=== PATIENT | male | born 1955 | race Caucasian/White ===

== ENCOUNTER 2020-01-21 13:03 | Outpatient (CLI) | payer BC, SELFPAY ==
[2020-01-22 12:25] LABS: SARS-CoV-2 RNA PCR Positive
== END 2020-01-21 13:04 | disposition home or self-care (01) ==
LOC: CHSLAB 13:07
PROVIDERS: PCP Internal Medicine; Visit Provider Internal Medicine
DX: U07.1 COVID-19 (principal)
CPT/HCPCS: 87635; C9803; U0003

== ENCOUNTER 2020-03-05 08:50 | Outpatient (CLI) | payer BC, SELFPAY ==
--- NOTE | ~2020-03-05 | US_ITS ---
EXAMINATION: US retroperitoneal comp DATE: 03/05/2020 09:18 INDICATION: Chronic kidney disease. TECHNIQUE: Multiple ultrasound grayscale images of the kidneys were obtained. COMPARISON: Lumbar spine MRI 06/15/2018 FINDINGS: The right kidney measures 10.9 x 4.8 x 5.3 cm. The left kidney measures 9.4 x 5.4 x 4.6 cm. The kidne ys demonstrate normal parenchymal echogenicity. There is a 5 mm cyst in right kidney. There is no hyd ronephrosis. The bladder is distended. The prostate is mildly enlarged. IMPRESSION: 1. Normal kidney sizes. No hydronephrosis. 2. Mildly enlarged prostate. Reviewed, dictated and finalized at location A.
== END 2020-03-05 08:51 | disposition home or self-care (01) ==
LOC: CHSIMG 08:52
PROVIDERS: PCP Internal Medicine; Visit Provider Internal Medicine
DX: R97.20 Elevated prostate specific antigen [PSA] (principal); N18.2 Chronic kidney disease, stage 2 (mild)
CPT/HCPCS: 76770

== ENCOUNTER 2021-07-15 01:40 | Day surgery (SDC) | payer BC, SELFPAY ==
[2021-07-11 15:17] VITALS: BMI 27.3
[2021-07-15 11:19] VITALS: BP 121/90; PULSE 74; RESP 18; TEMP 36.3; O2SAT 98; BMI 27.1
[2021-07-15] MEDS: LACTATED RINGERS 1,000 ML 150 ML IV CONT (11:25)
--- NOTE | 2021-07-15 11:35 | PM.HPGS ---
History of Present Illness History of Present Illness Consent: Risks, benefits, and alternatives have been discussed and questions answered. Patient agrees to proceed with procedure. Chief complaint: neoplasm screening Narrative: Velasquez Murphy is a 66 year old male here for screening colonoscopy, last one 10 years ago. Review of Systems Constitutional: Constitutional: Denies headache(s) and Denies weakness Eyes: Eyes: Denies blurry vision ENT: Reports Normal hearing present, Denies headache(s) and Denies neck pain Cardiovascular: Cardiovascular: Denies chest pain and Denies dyspnea Respiratory: Respiratory: Denies dyspnea Gastrointestinal: Gastrointestinal: Reports no additional gastrointestinal complaints Genitourinary: Genitourinary: Denies dysuria Musculoskeletal: Musculoskeletal: Denies neck pain Integumentary/Breasts: Skin/Breast: Denies dry skin Neurologic: Reports Normal hearing present, Denies headache(s) and Denies weakness Psychiatric: Psychiatric: Denies anxiety Endocrine: Endocrine: Denies change in body appearance Hematologic/Lymphatic: Hematologic/Lymphatic: Denies easy bleeding Allergic/Immunologic: Allergic/Immunologic: Denies urticaria PMFSH Past Medical History Medical History (Updated 07/15/21 @ 11:35 by Ahsan Karimi MD) Colon cancer screening Family History Family History (Updated 01/01/14 @ 07:13 by DOCTOR UNKNOWN) Sibling Family history of thyroid disease Family history of arthritis Father Hypertension Cerebrovascular accident Mother Family history of arthritis Acute myocardial infarction Social History Social History Smoking status: Never smoker Alcohol intake: current Drinks per week: 2 Substance use type: does not use Living arrangements: alone Spiritual care concerns: No Meds Home Medications and Allergies Home Medications Medication Instructions Recorded Confirmed Type lovastatin 20 mg PO DAILY 07/11/21 07/11/21 History meloxicam 15 mg PO DAILY 07/11/21 07/11/21 History multivit with min-folic acid 1 tablet PO DAILY 07/11/21 07/11/21 History [Adult One Daily Multivitamin] tamsulosin 0.4 mg PO DAILY 07/11/21 07/11/21 History Allergies Allergy/AdvReac Type Severity Reaction Status Date / Time walnut Allergy Unknown Verified 07/15/21 11:17 Vital Signs Vital Signs - 24 hr 07/15/21 11:19 Temperature 97.3 F L Pulse Rate 74 Respiratory Rate 18 Blood Pressure 121/90 Pulse Oximetry 98 Exam Const: General: comfortable and no acute distress HENMT: General nose exam: Normal nares present Eyes: General: appearance normal, both eyes and all related structures Neck: Neck: no JVD Resp: Auscultation: clear to auscultation bilaterally Cardio: Rate: regular rate Rhythm: regular rhythm GI: Inspection: non-distended GI Palp: Yes Soft to palpation Skin: General skin exam: normal color Neuro: General: gait normal Speech: normal speech Extrem: General: normal to inspection Psych: Mental Status: mental status grossly normal Assessment and Plan Assessment and plan (1) Colon cancer screening: Code(s): Z12.11 - Encounter for screening for malignant neoplasm of colon Status: Acute Assessment and Plan: colonoscopy
--- NOTE | 2021-07-15 12:26 | WPDANESEPPF ---
Anes - Initial Pre Proc Eval Procedure: Operation Date: 07/15/21 12:30 Proposed Procedures p Screening Colonoscopy - Ahsan Karimi MD Date/Time: 07/15/21 12:26 Surgeon: Ahsan Karimi MD Pre Op Diagnosis: neoplasm screening Patient Data Age: 66 Gender: M Height: 1.75 m Weight: 83.4 kg Last Vital Signs Temp 97.3 F L 07/15/21 11:19 Pulse 74 07/15/21 11:19 Resp 18 07/15/21 11:19 BP 121/90 07/15/21 11:19 Pulse Ox 98 07/15/21 11:19 Allergies Allergy/AdvReac Type Severity Reaction Status Date / Time walnut Allergy Unknown Verified 07/15/21 11:17 Home Medications Medication Instructions Recorded Confirmed Type lovastatin 20 mg PO DAILY 07/11/21 07/11/21 History meloxicam 15 mg PO DAILY 07/11/21 07/11/21 History multivit with min-folic acid 1 tablet PO DAILY 07/11/21 07/11/21 History [Adult One Daily Multivitamin] tamsulosin 0.4 mg PO DAILY 07/11/21 07/11/21 History Patient hx anesthesia problems: none Family hx anesthesia problems: none Results Review: All pre-operative results and documents have been reviewed as part of the pre-operative evaluation. [facility] Past Medical History Medical History (Updated 07/15/21 @ 11:35 by Ahsan Karimi MD) Colon cancer screening Family History Family History (Updated 01/01/14 @ 07:13 by DOCTOR UNKNOWN) Sibling Family history of thyroid disease Family history of arthritis Father Hypertension Cerebrovascular accident Mother Family history of arthritis Acute myocardial infarction Social History Social History Smoking status: Never smoker Alcohol intake: current Drinks per week: 2 Substance use type: does not use Living arrangements: alone Spiritual care concerns: No Anes - Eval Final PreProcedure Day of Procedure 07/15/21 12:26 Patient weight: normal Heart: regular rate and rhythm Lungs: clear to auscultation Airway: Mallampati scale class II Neurological: alert and oriented Last oral intake: >/= 8 hours ASA classification: II Emergent: no Anesthetic plan: proceed Anesthesia type and monitoring: general GIVS and standard monitoring Results Review: All pre-operative results and documents have been reviewed as part of the pre-operative evaluation. Informed Consent: The patient's anesthetic plan and its attendant risks and benefits were discussed with the patient/family/POA. Questions were solicited and answers provided to the satisfaction of the patient/family/POA.
[2021-07-15 12:37] VITALS: BP 89/58; PULSE 66; RESP 19; O2SAT 93
[2021-07-15 12:47] VITALS: BP 92/58; PULSE 63; RESP 17; O2SAT 94
[2021-07-15 12:57] VITALS: BP 91/57; PULSE 65; RESP 20; O2SAT 95
[2021-07-15 13:07] VITALS: BP 140/92; PULSE 58; RESP 23; O2SAT 100
== END 2021-07-15 13:33 | disposition home or self-care (01) ==
PROVIDERS: PCP Internal Medicine; Visit Provider Internal Medicine Gastroenterology
PROC: 0DJD8ZZ Inspection of Lower Intestinal Tract, Via Natural or Artificial Opening Endoscopic (ICD-10-PCS; CPT 45378; principal; 2021-07-15 12:30)
DX: Z12.11 Encounter for screening for malignant neoplasm of colon (principal); K64.8 Other hemorrhoids
CPT/HCPCS: 45378; J2704; J7120

== ENCOUNTER 2021-08-01 16:36 | Outpatient (CLI) | payer BC, SELFPAY ==
--- NOTE | ~2021-08-01 | XR_ITS ---
XR chest 2V DATE: 08/01/2021 17:05 INDICATION: Worsening cough for 3 days. Chest tightness. TECHNIQUE: PA and lateral views COMPARISON: 07/20/2011 two-view chest FINDINGS: Normal heart size. No hilar or mediastinal enlargement. No pulmonary infiltrate or consolid ation, pleural effusion or pulmonary vascular congestion or pneumothorax. IMPRESSION: No active cardiopulmonary disease Reviewed, dictated and finalized at location A.
== END 2021-08-01 16:37 | disposition home or self-care (01) ==
LOC: CHSIMG 16:40
PROVIDERS: PCP Internal Medicine; Visit Provider Nurse Practitioner Family
DX: R05.3 Chronic cough (principal)
CPT/HCPCS: 71046

== ENCOUNTER 2023-06-15 14:56 | Outpatient (CLI) | payer MEDICARE, SELFPAY ==
--- NOTE | ~2023-06-15 | XR_ITS ---
EXAMINATION: XR knee LT 3V DATE: 06/15/2023 15:42 INDICATION: Left knee injury and pain. TECHNIQUE: 4 views of left knee including weightbearing views were obtained. COMPARISON: None. FINDINGS: Bone alignment is normal. No fracture. There is mild tricompartmental osteoarthritis. There is a small knee joint effusion. IMPRESSION: 1. Mild left knee osteoarthritis. 2. Small left knee joint effusion. Reviewed, dictated and finalized at location E. 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
[2023-06-15 15:26] LABS: Basophils Absolute Auto 0.04 K/mm3 (0.00-0.10); Basophils Percent Auto 0.7 % (0.0-1.0); Eosinophils Absolute Auto 0.23 K/mm3 (0.02-0.50); Eosinophils Percent Auto 3.9 % (1.0-6.0); Hematocrit 42.7 % (37.0-46.0); Hemoglobin 14.5 g/dL (12.4-15.3); Immature Granulocyte Absolute 0.01 K/mm3 (0.00-0.00); Immature Granulocyte Percent A 0.2 % (0.0-0.0); Lymphocytes Absolute Auto 1.88 K/mm3 (1.10-4.50); Lymphocytes Percent Auto 32.2 % (18.0-42.0); Mean Corpuscular Hemoglobin 31.8 pg (27.0-31.0); Mean Corpuscular Volume 93.6 fL (78.0-102.0); Mean Platelet Volume 9.5 fl (8.7-11.0); Monocytes Absolute Auto 0.65 K/mm3 (0.10-0.90); Monocytes Percent Auto 11.1 % (2.0-11.0); Neutrophils Percent Auto 51.9 % (50.0-70.0); Platelet Count Result 206 K/mm3 (150-420); Red Blood Count 4.56 M/mm3 (4.70-6.10); Red Cell Distribution Width 13.2 % (11.6-14.4); White Blood Count 5.8 K/mm3 (4.8-10.8)
[2023-06-15 16:08] LABS: Alanine Aminotransferase 38 U/L (16-63); Albumin Level 4.1 g/dL (3.4-5.0); Alkaline Phosphatase 65 U/L (46-116); Anion Gap 13 mmol/L (8-16); Aspartate Amino Transferase 27 U/L (15-37); Bilirubin,Total 0.8 mg/dL (0.00-1.00); Blood Urea Nitrogen 22 mg/dL (7-18); Calcium 8.2 mg/dL (8.5-10.1); Carbon Dioxide 24 mmol/L (21-32); Chloride 105 mmol/L (98-108); Estimated Glomerular Filt Rate > 60; Glucose 103 mg/dL (70-99); Osmolality Calculated 297 mOsm/kg (285-295); Potassium 4.3 mmol/L (3.5-5.1); Sodium 142 mmol/L (136-145); Total Protein 6.9 g/dL (6.4-8.2); Uric Acid 5.1 mg/dL (3.5-7.2)
[2023-06-15 16:09] LABS: CRP < 0.5 mg/dL (0.0-0.9)
[2023-06-15 16:27] LABS: Erythrocyte Sedimentation Rate 9 mm/hr (0-20)
[2023-06-19 13:45] LABS: Lyme Disease Ab (IgM), Blot Negative (Negative); Lyme Disease Ab(IgG), Blot Negative (Negative)
== END 2023-06-15 14:57 | disposition home or self-care (01) ==
PROVIDERS: PCP Internal Medicine; Visit Provider Internal Medicine
DX: M25.562 Pain in left knee (principal); M17.12 Unilateral primary osteoarthritis, left knee; M25.462 Effusion, left knee
CPT/HCPCS: 36415; 73562; 80053; 84550; 85025; 85652; 86140; 86617

== ENCOUNTER 2023-07-19 10:32 | Outpatient (CLI) | payer MEDICARE, SELFPAY ==
--- NOTE | ~2023-07-19 | MR_ITS ---
EXAMINATION: MR knee LT wo con DATE: 07/19/2023 11:10 INDICATION: 2 months of medial left knee pain and swelling with left knee joint effusion. TECHNIQUE: Magnetic resonance imaging (MRI) of the left knee was performed without intravenous contra st. Sequences included coronal PD-weighted FSE, coronal PD-weighted FS FSE, sagittal T2-weighted FSE , sagittal PD-weighted FS FSE and axial PD weighted fat saturated FSE. COMPARISON: None. FINDINGS: Medial compartment: Complex tear with fraying along the free edge of the body the medial meniscus where there is amorphou s increased signal along the inner third and with extension of subtle frayed meniscal material extend ing between the articular surfaces of the medial tibial plateau and medial femoral condyle. There is deep chondral ulceration with chondral surface regularity and underlying subarticular edema-like sign al change along much of the anterior to central weightbearing medial femoral condyle and without suba rticular edema-like signal change along portions of the adjacent posterior weightbearing medial femor al condyle. Additional deep chondral ulceration with smooth chondral surface along the medial tibial plateau with minimal subarticular edema-like signal change along the medial rim. Lateral compartment: Lateral meniscus is normal. Small region of deep chondral ulceration with cortical irregularity and u nderlying edema-like signal change at the posterior weightbearing lateral femoral condyle. Remaining cartilage appears relatively preserved. Patellofemoral compartment: Small region of partial-thickness chondral fissuring at the medial side of the lateral patellar facet . Trochlear cartilage is normal. Ligaments and tendons: Anterior and posterior cruciate ligaments are normal. The medial collateral ligament and fibular mikki ateral ligament complex are normal. The extensor mechanism is normal. The visualized medial and later al hamstring tendons as well as the iliotibial band are normal. There is feathery muscular edema willy g the distal vastus medialis muscle belly. Fluid: Small left knee joint effusion. No loose osteochondral bodies identified. Very small Moore's cyst. Osseous/other: Bone alignment is normal. No fracture or pathologic marrow replacing process. No fracture or patholog ic marrow replacing process. IMPRESSION: 1. Complex tear with fraying along the inner free edge of the body of the medial meniscus. 2. Tricompartmental osteoarthritis, moderate to severe with extensive high-grade chondral malacia in the medial compartment, mild in the lateral compartment with small region of high-grade chondromalaci a along the posterior weightbearing lateral femoral condyle and mild in the patellofemoral compartmen t with small regions of moderate grade chondromalacia at the lateral facet. 3. With edema along the distal vastus medialis muscle belly which could be related to low-grade strai n, contusion or other nonspecific myositis. 4. Small left knee joint effusion and very small Moore's cyst. Reviewed, dictated and finalized at location L. IMPRESSION: 1. Complex tear with fraying along the inner free edge of the body of the media l meniscus. 2. Tricompartmental osteoarthritis, moderate to severe with extensive high-grad e chondral malacia in the medial compartment, mild in the lateral compartment w ith small region of high-grade chondromalacia along the posterior weightbearing lateral femoral condyle and mild in the patellofemoral compartment with small regions of moderate grade chondromalacia at the lateral facet. 3. With edema along the distal vastus medialis muscle belly which could be rela jhon to low-grade strain, contusion or other nonspecific myositis. 4. Small left knee joint effusion and very small Moore's cyst.
== END 2023-07-19 10:33 | disposition home or self-care (01) ==
LOC: CHSIMG 10:34
PROVIDERS: PCP Internal Medicine; Visit Provider Internal Medicine
DX: M25.562 Pain in left knee (principal); M79.89 Other specified soft tissue disorders; S83.232A Complex tear of medial meniscus, current injury, left knee, initial encounter; M17.12 Unilateral primary osteoarthritis, left knee; M94.262 Chondromalacia, left knee; M25.462 Effusion, left knee; M71.22 Synovial cyst of popliteal space [Baker], left knee
CPT/HCPCS: 73721

== ENCOUNTER 2023-09-17 15:30 | Outpatient (CLI) | payer MEDICARE, SELFPAY ==
--- NOTE | ~2023-09-17 | XR_ITS ---
EXAM: XR knee RT min 4V DATE: 09/17/2023 15:50 HISTORY: RT knee swelling/pain X 2 weeks . COMPARISON: None available. FINDINGS: Normal mineralization. No fracture or dislocation. No lytic or blastic lesion. Moderate me dial joint space narrowing. Mild tricompartmental osteophytosis. Small volume left knee joint fluid. No erosion or periosteal change. Soft tissues within normal limits. IMPRESSION: Tricompartmental right knee osteoarthritis, moderate in the medial compartment. Small miguelito nt effusion. Reviewed, dictated and finalized at location K. IMPRESSION: Tricompartmental right knee osteoarthritis, moderate in the medial compartment. Small joint effusion.
== END 2023-09-17 15:31 | disposition home or self-care (01) ==
PROVIDERS: PCP Internal Medicine; Visit Provider Internal Medicine
DX: M25.561 Pain in right knee (principal); M17.11 Unilateral primary osteoarthritis, right knee; M25.461 Effusion, right knee
CPT/HCPCS: 73564

== ENCOUNTER 2024-04-21 13:49 | Outpatient (CLI) | payer MEDICARE, SELFPAY ==
--- NOTE | 2024-04-21 14:48 | ECG_ITS ---
Test Date: 2024-04-21 15:04:00 Measurements Intervals [place] Rate: 64 P: 51 TX: 207 QRS: 91 QRSD: 144 T: 14 QT: 434 QTc: 451 Interpretive Statements SINUS RHYTHM RIGHT BUNDLE BRANCH BLOCK [120+ ms QRS DURATION, UPRIGHT V1, 40+ ms S IN I/aVL/V4/V5/V6] WARNING: DATA QUALITY MAY AFFECT INTERPRETATION No previous ECG available for comparison Electronically Signed On 04-21-2024 21:21:59 CLAIMS CLERK by Adam Dial M.D.
[2024-04-21 15:12] LABS: Basophils Absolute Auto 0.1 K/mm3 (0.0-0.1); Basophils Percent Auto 0.9 % (0.2-1.2); Eosinophils Absolute Auto 0.2 K/mm3 (0-0.3); Eosinophils Percent Auto 3.1 % (0-4.4); Hematocrit 44.6 % (42.0-52.0); Hemoglobin 15.3 g/dL (14.0-18.0); Immature Granulocyte Absolute 0.01 K/mm3 (0.00-0.031); Immature Granulocyte Percent A 0.2 % (0-0.5); Lymphocytes Absolute Auto 1.87 K/mm3 (0.9-3.2); Lymphocytes Percent Auto 28.5 % (18.3-44.2); Mean Corpuscular HGB Conc 34.3 g/dl (32-36); Mean Corpuscular Hemoglobin 32.6 pg (26-34); Mean Corpuscular Volume 95.1 fl (80-100); Mean Platelet Volume 9.4 fl (7.4-10.4); Monocytes Absolute Auto 0.6 K/mm3 (0.1-0.6); Monocytes Percent Auto 9.8 % (2.6-8.5); Neutrophils Absolute Auto 3.8 K/mm3 (1.3-6.7); Neutrophils Percent Auto 57.5 % (45.5-73.1); Platelet Count Result 204 k/mm3 (150-375); Red Blood Count 4.69 M/mm3 (4.6-6.20); Red Cell Distribution Width 13.2 % (11.5-14.5); White Blood Count 6.6 K/mm3 (4.5-10.0)
[2024-04-21 15:21] LABS: Hemoglobin A1C 5.7 % (<5.7)
[2024-04-21 15:26] LABS: Albumin Level 4.6 g/dL (3.5-5.1); Anion Gap 5 mmol/L (4-12); Blood Urea Nitrogen 21 mg/dL (9-20); Calcium 9.3 mg/dL (8.4-10.2); Carbon Dioxide 26 mmol/L (22-30); Chloride 108 mmol/L (98-107); Estimated Glomerular Filt Rate > 60; Glucose 94 mg/dL (65-110); Potassium 4.1 mmol/L (3.4-5.0); Sodium 139 mmol/L (137-145)
[2024-04-21 15:32] LABS: Urine Cotinine NEGATIVE
== END 2024-04-21 13:50 | disposition home or self-care (01) ==
LOC: ANHSURGERY 13:56
PROVIDERS: PCP Internal Medicine; Visit Provider Orthopaedic Surgery
DX: M17.0 Bilateral primary osteoarthritis of knee (principal); Z01.818 Encounter for other preprocedural examination; I45.10 Unspecified right bundle-branch block
CPT/HCPCS: 80048; 80307; 82040; 83036; 85025; 87081; 93005

== ENCOUNTER 2024-05-12 00:23 | Day surgery (SDC) | payer MEDICARE, SELFPAY ==
[2024-04-21 14:09] VITALS: BP 133/74; PULSE 69; RESP 14; TEMP 36.8; O2SAT 97; BMI 32.1
--- NOTE | 2024-04-21 14:31 | PC.NURSE ---
Report to the Outpatient Waiting Room, entrance under the green pavilion located off [facility], at time _06:00am on date __05/12/2024 . Planned Procedure Time: _07:30am .? Time changes happen often and if your time is changed the preop area will call you the afternoon before. - You and your visitor will be asked to self-screen and do not enter if you have any COVID symptoms. Please call surgeon if you need to reschedule. - A mask is optional within the hospital at this time. Patients may have clear liquids (water, carbonated beverages, clear teas, apple juice) until 3 hours prior to surgery with a maximum of 20 ounces. - No food from midnight until time of surgery and no smoking. This includes no chewing gum, candy or mints. - Infants may have breast milk until 4 hours before surgery, formula 6 hours prior to surgery. - Children will be allowed to drink immediately following surgery.? If applicable, please bring a bottle or sippy cup to assist with drinking. Juice, water, soda, and popsicles are readily available.? For infants on formula, please bring formula the day of surgery.? Pacifiers are allowed. Take only the following medications with a SIP of water on the morning of surgery: __Tylenol if needed DO NOT STOP ANY OF YOUR OTHER PRESCRIPTION MEDICATIONS PRIOR TO SURGERY EXCEPT THE FOLLOWING Medications to discontinue per physician ___Hold all vitiamins, supplements, and Meloxicam for [address] Ulrich. Date to take last dose 05/04/24 Please no make-up, nail tristanian, hairspray, perfume, deodorant, or body powder the day of surgery.? No jewelry (including any body piercings) or valuables the day of surgery, leave them at home.? Please take a shower or bath the night before, or the morning of, surgery with an antibacterial soap.? Wear comfortable, loose fitting clothing.? - Jewelry must be removed prior to entering the operating room.? Rings and piercings that are not removed may be cut off. - The hospital will not accept responsibility for valuables.? - Please leave all valuables, including medications, at home the day of surgery. If you are going home after surgery, a licensed shag truck driver must drive you home.? - NO public transportation without another adult if you receive anesthesia. - We recommend that an adult stay with you for 24 hours following discharge. - We also recommend that you do not drive, make important decision, drink alcoholic beverages, or take any drugs that were not prescribed by your health care provider for at least 24 hours after your discharge time. Follow any additional instructions given to you from your surgeon. Telephone instructions given to ___patient and asked if any additional questions and then verbalized understanding. Patient advised to call surgeon office or pre surgery nurse liaison [phone] if any additional questions.
--- NOTE | 2024-05-09 11:26 | PM.IMHP ---
H&P: [facility] History of Present Illness Date/Time: 05/09/24 11:26 Chief Complaint: Left knee DJD Narrative: 69-year-old male patient of Dr. Garcias who presents today for a left total knee arthroplasty with cortisone injection in the right knee. Patient has severe medial compartment osteoarthritis in the left. 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 Patient is been having pain on a daily basis with weight-bearing. He has been taking meloxicam 15 mg daily without improvement of his symptoms. Patient feels this point he is having significant symptoms on a daily basis and wishes to proceed with total knee arthroplasty. Review of Systems Review of Systems: All systems reviewed & are unremarkable except as noted in HPI and below PMFSH Past Medical History Medical History Colon cancer screening Enlarged prostate Surgical History Surgical History History of heart surgery History of hernia repair Family History Family History Sibling Family history of thyroid disease Family history of arthritis Father Hypertension Cerebrovascular accident Mother Family history of arthritis Acute myocardial infarction Social History Social History Smoking status: Never smoker Alcohol intake: current Drinks per week: 1 Substance use: never Substance use type: does not use Do You Feel Safe in your Home?: Yes Lack of Transportation: No Lack of Food: Never True Current Housing: I Have Housing Concerned About Future Housing: No Difficulty Paying Gas/Electric Bills: No Difficulty Paying for Meds: No Currently Unemployed: No Education: Associate Degree Difficulty w/ Childcare or Family Care: No Living arrangements: alone Additional living arrangements comments: Spiritual care concerns: No Meds Home Medications and Allergies Home Medications ?Medication ?Instructions ?Recorded ?Confirmed ?Type lovastatin 20 mg tablet 20 mg PO DAILY 07/11/21 04/21/24 History meloxicam 15 mg tablet 15 mg PO DAILY 07/11/21 04/21/24 History multivitamin with minerals-folic 1 tablet PO DAILY 07/11/21 04/21/24 History acid 0.4 mg tablet tamsulosin 0.4 mg capsule 0.4 mg PO DAILY 07/11/21 04/21/24 History antiarthritic combination no.2 900 3,000 mg PO DAILY 02/15/24 04/21/24 History mg tablet (glucosamine-chondroitin) calcium 600 mg (as 1 tablet PO DAILY 02/15/24 04/21/24 History carbonate)-vitamin D3 20 mcg (800 unit) tablet coenzyme Q10 400 mg capsule (Co 800 mg PO DAILY 02/15/24 04/21/24 History Q-10) vitamin B complex 1 cap PO DAILY 02/15/24 04/21/24 History acetaminophen 500 mg tablet 1,000 mg PO Q4-6H PRN pain 04/21/24 04/21/24 History Allergies Allergy/AdvReac Type Severity Reaction Status Date / Time pollen extracts Allergy Intermediate Congested Verified 04/21/24 14:04 walnut Allergy Unknown Verified 04/21/24 14:04 Exam Narrative: 69-year-old male alert pleasant. He is 5 ft 9 and 200 lb BMI is 29.5. Left knee range of motion is from 2-140 degrees. Trace effusion. Moderate medial joint line tenderness. Normal stability. Hip range of motion is full without discomfort, negative Stinchfield maneuver. He has normal quad strength. No edema in lower extremities. He has normal sensation both lower extremities. 2+ dorsalis pedis and posterior tibial artery pulse. Resp: Auscultation: clear to auscultation bilaterally Cardio: Rate: regular rate Rhythm: regular rhythm Assessment and Plan Assessment and plan (1) Primary localized osteoarthritis of knees, bilateral: Code(s): M17.0 - Bilateral primary osteoarthritis of knee Status: Acute Assessment and Plan: 69-year-old male who has severe medial compartment osteoarthritis in the left knee with severe symptoms on a daily basis. He also has moderately severe narrowing the medial compartment in the right knee. This point patient feels he is ready proceed with total knee arthroplasty on the left and we will proceed with cortisone injection in the right knee at the time surgery. Surgical procedures well as the risks and complications were discussed in detail all questions were answered and we will proceed. Patient will see his primary care doctor for pre-surgical clearance. He will avoid his meloxicam and any other aspirin ibuprofen products 1 week prior to surgery. Nasal swab was negative. Hemoglobin 15.3 and platelets were 2 4. Chem panel is all within normal limits creatinine 1.00
[2024-05-12] VITALS (13 sets, daily range): BP systolic 98–158; BP diastolic 55–92; PULSE 77–103; RESP 12–20; TEMP 35.8–37.1; O2SAT 94–100
--- NOTE | ~2024-05-12 | XR_ITS ---
EXAMINATION: [id number] DATE: 05/12/2024 12:18 FOOD SAMPLER INDICATION: Left total knee arthroplasty TECHNIQUE: 2 views left knee FINDINGS: There is a left total knee arthroplasty in expected position. Subcutaneous gas with fluid and air in the joint are consistent with recent surgery. No evidence of periprosthetic fracture. IMPRESSION: 1. Recent left total knee arthroplasty. Reviewed, dictated and finalized at location B. SAMPLER
[2024-05-12] MEDS: TRANEXAMIC ACID 1,000MG/ISO100 1,000 MG/100 ML BAG 200 MG IVPB (06:30)
[2024-05-12] MEDS: LACTATED RINGERS 1,000 ML 30 ML IV CONT ×2 (06:30→11:59)
[2024-05-12] MEDS: ACETAMINOPHEN 500 MG TABLET 1000 MG PO ×3 (06:30→20:38)
[2024-05-12] MEDS: VANCOMYCIN 1,500 MG/NS 500 ML BAG 250 MG IVPB (06:45)
--- NOTE | 2024-05-12 07:17 | WPDHPUPDATE1 ---
History and Physical Update Update Date/Time: 05/12/24 07:17 History and Physical has been reviewed, including an updated exam of the patient. There are NO changes in the patient's condition. Risks, benefits, and alternatives have been discussed and questions answered. Patient agrees to proceed with procedure.
[2024-05-12] MEDS: ceFAZolin 2 GM/D5W 50 ML 2 GM/50 ML BAG IVPB ×3 (07:18→22:15)
--- NOTE | 2024-05-12 07:20 | WPDHPUPDATE1 ---
History and Physical Update Update Date/Time: 05/12/24 07:20 History and Physical has been reviewed, including an updated exam of the patient. There are NO changes in the patient's condition. Risks, benefits, and alternatives have been discussed and questions answered. Patient agrees to proceed with procedure.
--- NOTE | 2024-05-12 07:38 | P.PNAN_ITS ---
Anes - Initial Pre Proc Eval Procedure: Operation Date: 05/12/24 07:30 Proposed Procedures p Left Total Knee Arthroplasty, Cortisone Injection Right Knee - Serge Ashraf MD Date/Time: 05/12/24 07:38 Surgeon: Serge Ashraf MD Pre Op Diagnosis: O A Both Knees Patient Data Age: 69 Gender: M Height: 1.73 m Weight: 95.8 kg Last Vital Signs Temp 98.3 F 04/21/24 14:09 Pulse 69 04/21/24 14:09 Resp 14 04/21/24 14:09 BP 133/74 04/21/24 14:09 Pulse Ox 97 04/21/24 14:09 O2 Del Method Room Air 04/21/24 14:09 Allergies Allergy/AdvReac Type Severity Reaction Status Date / Time pollen extracts Allergy Intermediate Congested Verified 05/12/24 07:14 walnut Allergy Unknown Verified 05/12/24 07:14 Home Medications ?Medication ?Instructions ?Recorded ?Confirmed ?Type lovastatin 20 mg tablet 20 mg PO DAILY 07/11/21 05/12/24 History meloxicam 15 mg tablet 15 mg PO DAILY 07/11/21 05/12/24 History multivitamin with minerals-folic 1 tablet PO DAILY 07/11/21 05/12/24 History acid 0.4 mg tablet tamsulosin 0.4 mg capsule 0.4 mg PO DAILY 07/11/21 05/12/24 History antiarthritic combination no.2 900 3,000 mg PO DAILY 02/15/24 05/12/24 History mg tablet (glucosamine-chondroitin) calcium 600 mg (as 1 tablet PO DAILY 02/15/24 05/12/24 History carbonate)-vitamin D3 20 mcg (800 unit) tablet coenzyme Q10 400 mg capsule (Co 800 mg PO DAILY 02/15/24 05/12/24 History Q-10) vitamin B complex 1 cap PO DAILY 02/15/24 05/12/24 History acetaminophen 500 mg tablet 1,000 mg PO Q4-6H PRN pain 04/21/24 05/12/24 History Laboratory Tests 05/12/24 06:26 Blood Type Pending Antibody Screen Pending Patient hx anesthesia problems: none Family hx anesthesia problems: none Results Review: All pre-operative results and documents have been reviewed as part of the pre- operative evaluation. [facility] Past Medical History Medical History Colon cancer screening Enlarged prostate Surgical History Surgical History History of heart surgery History of hernia repair Family History Family History Sibling Family history of thyroid disease Family history of arthritis Father Hypertension Cerebrovascular accident Mother Family history of arthritis Acute myocardial infarction Social History Social History Smoking status: Never smoker Alcohol intake: current Drinks per week: 2 Substance use: never Substance use type: does not use Do You Feel Safe in your Home?: Yes Lack of Transportation: No Lack of Food: Never True Current Housing: I Have Housing Concerned About Future Housing: No Difficulty Paying Gas/Electric Bills: No Difficulty Paying for Meds: No Currently Unemployed: No Education: Associate Degree Difficulty w/ Childcare or Family Care: No Living arrangements: alone Additional living arrangements comments: Spiritual care concerns: No Anes - Eval Final PreProcedure Day of Procedure 05/12/24 07:38 Patient weight: normal Heart: regular rate and rhythm Lungs: clear to auscultation Airway: Mallampati scale class II Neurological: alert and oriented Last oral intake: >/= 8 hours ASA classification: II Emergent: no Anesthetic plan: proceed Anesthesia type and monitoring: general LMA and standard monitoring Results Review: All pre-operative results and documents have been reviewed as part of the pre- operative evaluation. Informed Consent: The patient's anesthetic plan and its attendant risks and benefits were discussed with the patient/family/POA. Questions were solicited and answers pro vided to the satisfaction of the patient/family/POA.
[2024-05-12] MEDS: SODIUM CHLORIDE 0.9% IV 37.7 ML, MORPHINE SULFATE INJ (*CRX) 2 MG, ROPivacaine HCL 1% 2... INFILTRATE (08:14)
[2024-05-12] MEDS: ceFAZolin SODIUM 1 GM VIAL 3 GM (08:15)
[2024-05-12] MEDS: methylPREDNISolone ACETATE 80 MG/ML VIAL IM (08:17)
[2024-05-12] MEDS: TRANEXAMIC ACID 1,000 MG/10 ML AMPUL 1000 MG IV PUSH (10:22)
[2024-05-12] MEDS: ceFAZolin SODIUM 1 GM VIAL 2 GM IV PUSH (10:24)
[2024-05-12] MEDS: KETOROLAC 15 MG/ML VIAL (*BKC) IV PUSH ×2 (11:56→17:48)
--- NOTE | 2024-05-12 13:29 | W.PM.PROC2 ---
Procedure Note - Detailed Date of Procedure 05/12/24 Pre-op Diagnosis O A Both Knees Post-op Diagnosis Same Procedure Performed 1. Cortisone injection right knee 2. Left total knee arthroplasty Surgeon Serge Ashraf MD Director Of Academic [employer] Anesthesia General Description of Procedure Patient was brought to the operating room and general anesthesia was administered. He received 2 g of Ancef weight based vancomycin 1 g of TXA preoperatively. After time-out, the right knee was prepped with alcohol chlorhexidine and 80 mg of Depo-Medrol and 4 cc 1% lidocaine were injected into the right knee without difficulty. The left knee was prepped draped usual fashion. Limb was exsanguinated tourniquet elevated to 275 mmHg. A 7 in longitudinal incision was made and a standard parapatellar arthrotomy was utilized. I noted that there was fatty infiltration of the VMO specifically. The articular cartilage on the patella was completely normal. A lateral facetectomy was performed removing about 5 mm of the lateral rim of the patella which is overhanging. Partial excision of infrapatellar fat pad was performed the quadriceps synovectomy carried out. Suprapatellar fat pad was excised. A guide diane was inserted on femoral canal after aspiration of canal contents. Patient had full extension perhaps a degree of hyperextension under anesthesia preoperatively and there was complete eburnation of the medial femoral condyle therefore only 8 mm of bone removed the distal femur. Next the tibial plateau was cut perpendicular to the axis of the tibia. This removed 0.5 mm of bone from the low point of medial tibial plateau and about 12 mm laterally. Meniscal remnants were excised the PCL was recessed. We did not release any posterior capsule. Flexion gap measured only 6 mm medially and 12 mm laterally. Alignment was neutral on the tibial cut in the coronal plane and was at 0? of slope in the sagittal plane. He had a pronounced varus slope to his tibial plateau on his preoperative x-rays. I elected to we applied the tibial cutting guide this time in 1-2 degrees of varus and wanted to grease of posterior slope to improve the flexion gap and this cut was made and following this the flexion gap at 90? measured 8 mm medially and about 13 mm laterally. Alignment of the tibial cut that we plan for was achieved, the femoral Sizer was applied at 5? of external rotation matching Whitesides line and posterior referencing pinholes were placed. The size 72.5 femoral block was too large relative to the anterior cortex and the 70 cutting block was applied which was the proper size. Anterior cut was flush with the anterior cortex. Chamfer and posterior cuts were made. The size 70 femoral trial fit nicely. The tibia was sized to a size 79. This fit line to line posterolateral to anteromedial in the proper rotation. This was punched and we trialed and the 12 mm insert allowed full extension with negative bounce with 0.5 mm of medial opening and 4 mm of lateral opening. At 90? there was 1 mm medial opening 2 mm lateral opening with appropriate anterior drawer stability. We trialed with the 13 and it was too tight flexion and had a positive bounce in extension. The 5 degree wing was applied the intramedullary diane which show that the distal femoral cut was about 5.5? of valgus. I felt we were too loose laterally. He did not have a varus deformity preoperative relief therefore I did not feel medial capsular release was appropriate from the tibia and therefore we fashioned a 1.5 mm Gabriela of bone from the anterior chamfer cut. His bone density was excellent. This gave us a 4 degree alignment when the Gabriela was placed on the distal aspect of lateral femoral condyle and on trialing the knee came out to full extension with 0.5 mm medial opening 2.5 mm of lateral opening and this had a much more appropriate stability feel. Residual posterior femoral bone was removed the posterior condyles and lug holes were drilled. The Gabriela was thoroughly anti get irrigated with Ancef solution. Step drill was used to make multiple perforations in the tibial plateau and distal femur for cement interdigitation. We put the tourniquet down at 90 minutes and we elevated the tourniquet again at this time after exsanguination of limb and finished the bone preparation and the bone surfaces were thoroughly irrigated and dried. Two batches of methylmethacrylate were mixed 1 with gentamicin powder. Cement was applied to the 79 vanguard tibial tray and then the size 70 left CR femoral component cement applied to the tibial plateau and pressurized the canal and the tibial component fully seated cement applied the distal femur with bone Gabriela in place on the distal aspect the lateral femoral condyle and femoral component fully seated the knee brought into extension with a 13 mm 5 and 1 poly trial for cement pressurization. Tourniquet was released total tourniquet time 120 minutes. Cement was allowed to harden fully after which excess cement was sought for removed and hemostasis was achieved. We trialed the 12 insert which had complete anterior posterior stability in all positions and in extension again 2.5 mm of opening laterally 0.5 mm medially. There was full extension with negative bounce. We did trial the 13 which had no play at 90? of flexion too tight and a positive bounce. The 12 insert was placed without difficulty locked locking pin range of motion stability and patellar tracking were reconfirmed. Local anesthetic cocktail was injected in the periarticular soft tissues. Arthrotomy was closed with 2. Vicryl 1. Unidirectional barbed Stratafix suture the skin closed with 2 subcutaneous Vicryl 3-0 subcuticular Monocryl and glue EBL was 250 cc. Additional 2 g of Ancef 1 g TXA given time wound closure. There were no complications he was transferred to postop recovery in good condition. BRENDON Oliver Surgery - Charge Forward: Surgery Melody (Cortisone injection right knee, left total knee arthroplasty.)
[2024-05-12] MEDS: PROPARACAINE HCL 0.5% 15 ML OPHTH SOLN 1 DROP EACH EYE (13:45)
[2024-05-12] MEDS: oxyCODONE HCL (*CRX) 5 MG TAB IR PO ×3 (14:35→22:15)
--- NOTE | 2024-05-12 15:00 | ADMGEN ---
This patient, Velasquez Murphy, was admitted to [facility] Surg Room 306-01. Report received from JANUARY Adams. Patient/family oriented to hospital policies and general routines including ID bracelet, bed and alarms, visiting hours, pain management, procedures, bathroom and other care routines, personal items, smoking policy, room service/diet, and visiting hours. Information on how to activate the Rapid Response Team has been discussed. Patient/Family are encouraged to report perceived risks to care and to ask questions if they do not understand what they are told or what they should do.
[2024-05-12] MEDS: SENNA/DOCUSATE SODIUM TABLET 2 TAB PO (17:48)
--- NOTE | 2024-05-12 18:49 | PM.IMCN ---
Assessment and Plan Assessment and plan (1) Osteoarthritis of left knee: Code(s): M17.12 - Unilateral primary osteoarthritis, left knee Status: Acute Assessment and Plan: - s/p Left total knee arthroplasty. - Pain meds PRN. - PT eval and treatment with ortho restrictions. - Fall precautions. - Further mgt per Ortho. (2) Osteoarthritis of right knee: Code(s): M17.11 - Unilateral primary osteoarthritis, right knee Status: Acute Assessment and Plan: - s/p Cortisone injection per Ortho. - Continue pain meds PRN. - Further mgt per Ortho. (3) Enlarged prostate: Code(s): N40.0 - Benign prostatic hyperplasia without lower urinary tract symptoms Status: Acute Assessment and Plan: - Continue Tamsulosin. (4) Dyslipidemia: Code(s): E78.5 - Hyperlipidemia, unspecified Status: Acute Assessment and Plan: - Continue statin. HPI Date of Consult Consult date: 05/12/24 Requesting Physician: Serge Ashraf MD Primary Care Provider: Diana Garcias MD Consult Narrative Narrative: Velasquez Murphy is a 69 year old male with a Hx of osteoarthritis to rolo. knees. Patient had a Cortisone injection right knee today, as well as Left total knee arthroplasty. Patient reports feeling good post-op, with only minimal discomfort to Left knee. Reports surgical knee was swollen earlier but appears the swelling has resolved. States will ambulate with PT in AM and hoping to go home tomorrow. Review of Systems Review of Systems: All systems reviewed & are unremarkable except as noted in HPI and below PMFSH Past Medical History Medical History (Updated 05/12/24 @ 19:02 by Pepper Montanez NP) Enlarged prostate Colon cancer screening Surgical History Surgical History History of hernia repair History of heart surgery Family History Family History Sibling Family history of thyroid disease Family history of arthritis Father Hypertension Cerebrovascular accident Mother Family history of arthritis Acute myocardial infarction Social History Social History Smoking status: Never smoker Alcohol intake: current Drinks per week: 2 Substance use: never Substance use type: does not use Do You Feel Safe in your Home?: Yes Lack of Transportation: No Lack of Food: Never True Current Housing: I Have Housing Concerned About Future Housing: No Difficulty Paying Gas/Electric Bills: No Difficulty Paying for Meds: No Currently Unemployed: No Education: Associate Degree Difficulty w/ Childcare or Family Care: No Living arrangements: alone Additional living arrangements comments: Spiritual care concerns: No Meds Home Medications and Allergies Home Medications ?Medication ?Instructions ?Recorded ?Confirmed ?Type lovastatin 20 mg tablet 20 mg PO DAILY 07/11/21 05/12/24 History meloxicam 15 mg tablet 15 mg PO DAILY 07/11/21 05/12/24 History multivitamin with minerals-folic 1 tablet PO DAILY 07/11/21 05/12/24 History acid 0.4 mg tablet tamsulosin 0.4 mg capsule 0.4 mg PO DAILY 07/11/21 05/12/24 History antiarthritic combination no.2 900 3,000 mg PO DAILY 02/15/24 05/12/24 History mg tablet (glucosamine-chondroitin) calcium 600 mg (as 1 tablet PO DAILY 02/15/24 05/12/24 History carbonate)-vitamin D3 20 mcg (800 unit) tablet coenzyme Q10 400 mg capsule (Co 800 mg PO DAILY 02/15/24 05/12/24 History Q-10) vitamin B complex 1 cap PO DAILY 02/15/24 05/12/24 History acetaminophen 500 mg tablet 1,000 mg PO Q4-6H PRN pain 04/21/24 05/12/24 History Allergies Allergy/AdvReac Type Severity Reaction Status Date / Time pollen extracts Allergy Intermediate Congested Verified 05/12/24 07:14 walnut Allergy Unknown Verified 05/12/24 07:14 Vital Signs Vital Signs - 24 hr 05/12/24 07:00 05/12/24 11:59 05/12/24 12:14 Temperature 97.7 F 97.7 F Pulse Rate 83 77 78 Respiratory Rate 16 13 12 Blood Pressure 126/75 98/55 L 104/65 Pulse Oximetry 94 96 96 Oxygen Delivery Room Air Simple Face Mask Simple Face Mask Oxygen Flow Rate 8 8 05/12/24 12:25 05/12/24 12:25 05/12/24 12:35 Temperature Pulse Rate 81 Respiratory Rate 12 Blood Pressure 109/62 Pulse Oximetry 97 99 98 Oxygen Delivery Simple Face Mask Simple Face Mask Room Air Oxygen Flow Rate 8 8 05/12/24 12:40 05/12/24 12:55 05/12/24 13:15 Temperature 98.4 F Pulse Rate 86 88 87 Respiratory Rate 16 20 16 Blood Pressure 106/69 106/56 L 125/67 Pulse Oximetry 98 100 98 Oxygen Delivery Room Air Room Air Oxygen Flow Rate 05/12/24 13:25 05/12/24 13:30 05/12/24 14:00 Temperature 97.1 F L 97.1 F L Pulse Rate 93 93 Respiratory Rate 18 20 Blood Pressure 120/82 124/65 Pulse Oximetry 97 96 Oxygen Delivery Room Air Oxygen Flow Rate 05/12/24 14:04 05/12/24 15:00 05/12/24 18:38 Temperature 96.4 F L 97.8 F Pulse Rate 100 103 H Respiratory Rate 20 16 Blood Pressure 109/92 H 158/68 H Pulse Oximetry 97 96 Oxygen Delivery Room Air Oxygen Flow Rate Exam Narrative: General: Well appearing, no acute distress. HEENT: Atraumatic, PERRL, EOM, anicteric, moist mucosa. NECK: Supple. Lungs: Clear bilaterally. Heart: RRR, no murmurs. Abdomen: Soft, non-tender, non-distended, +BS X4 quadrants. Extremities: No cyanosis, no edema. Skin: Warm and dry. Surgical drsg L.Knee clean, dry and intact. Neuro: Well oriented. CN II-XII grossly intact. Psych: Pleasant and co-operative. Quality VTE Prophylaxis VTE prophylaxis: mechanical ordered Hospitalist MIPS Advance Care Plan I have confirmed that the patient's Advanced Care Plan is present, code status is documented, or surrogate decision maker is listed in patient medical record.: Yes Medication Reconciliation I have utilized all available resources to obtain, update and review the patients current medications (includes all prescriptions, OTC, herbals, cannabis, and nutritional supplements).: Yes
[2024-05-12] MEDS: VANCOMYCIN 1,000 MG/NS 250 ML 1,000 MG/250 ML BAG 250 MG IVPB (20:37)
[2024-05-13] MEDS: KETOROLAC 15 MG/ML VIAL (*BKC) IV PUSH (00:08)
[2024-05-13] MEDS: oxyCODONE HCL (*CRX) 5 MG TAB IR PO ×3 (02:31→09:33)
[2024-05-13] MEDS: ACETAMINOPHEN 500 MG TABLET 1000 MG PO ×3 (02:31→12:03)
[2024-05-13 02:42] VITALS: BP 123/70; PULSE 91; RESP 16; TEMP 36.9; O2SAT 96
[2024-05-13 05:46] VITALS: BP 105/63; PULSE 94; RESP 16; TEMP 37; O2SAT 99
[2024-05-13] MEDS: ceFAZolin 2 GM/D5W 50 ML 2 GM/50 ML BAG IVPB (06:19)
[2024-05-13] MEDS: VANCOMYCIN 1,000 MG/NS 250 ML 1,000 MG/250 ML BAG 250 MG IVPB (07:12)
[2024-05-13 07:17] LABS: Basophils Percent Auto 0.1 % (0.2-1.2); Hematocrit 35.8 % (42.0-52.0); Immature Granulocyte Absolute 0.08 K/mm3 (0.00-0.031); Immature Granulocyte Percent A 0.5 % (0-0.5); Lymphocytes Absolute Auto 0.97 K/mm3 (0.9-3.2); Lymphocytes Percent Auto 6.2 % (18.3-44.2); Mean Corpuscular HGB Conc 33.5 g/dl (32-36); Mean Corpuscular Volume 95.5 fl (80-100); Mean Platelet Volume 9.2 fl (7.4-10.4); Monocytes Absolute Auto 1.3 K/mm3 (0.1-0.6); Monocytes Percent Auto 8.4 % (2.6-8.5); Neutrophils Absolute Auto 13.4 K/mm3 (1.3-6.7); Neutrophils Percent Auto 84.8 % (45.5-73.1); Platelet Count Result 167 k/mm3 (150-375); Red Blood Count 3.75 M/mm3 (4.6-6.20); Red Cell Distribution Width 13.3 % (11.5-14.5); White Blood Count 15.8 K/mm3 (4.5-10.0)
[2024-05-13 07:28] LABS: Anion Gap 4 mmol/L (4-12); Blood Urea Nitrogen 21 mg/dL (9-20); Calcium 8.3 mg/dL (8.4-10.2); Carbon Dioxide 27 mmol/L (22-30); Chloride 108 mmol/L (98-107); Estimated CRCL calculation 63 ml/min; Estimated Glomerular Filt Rate > 60; Glucose 133 mg/dL (65-110); Potassium 4.4 mmol/L (3.4-5.0); Sodium 139 mmol/L (137-145)
--- NOTE | 2024-05-13 07:44 | WPDANESPN ---
Anes - Prog Note Post-Op Date/Time: 05/13/24 07:44 Cardiovascular status: normal Respiratory status: normal Airway patency: baseline Mental status: baseline Post-Op hydration status: normal Vital Signs: Last Vital Signs Temp 37.0 C 05/13/24 05:46 Pulse 94 05/13/24 05:46 Resp 16 05/13/24 05:46 BP 105/63 05/13/24 05:46 Pulse Ox 99 05/13/24 05:46 O2 Del Method Room Air 05/12/24 14:04 O2 Flow Rate 8 05/12/24 12:25 Pain Score (VAS): 1 I/O: Intake & Output 05/12/24 05/12/24 05/13/24 15:59 23:59 07:59 Intake Total 500 540 Balance 500 540 Laboratory Tests 05/13/24 07:09 05/13/24 07:09 05/12/24 05/13/24 06:26 07:09 WBC 15.8 H RBC 3.75 L Hgb 12.0 L D Hct 35.8 L MCV 95.5 MCH 32.0 MCHC 33.5 RDW 13.3 Plt Count 167 MPV 9.2 Immature Gran % (Auto) 0.5 Neut % (Auto) 84.8 H Lymph % (Auto) 6.2 L [place] % (Auto) 8.4 Eos % (Auto) 0.0 Baso % (Auto) 0.1 L Lymph # (Auto) 0.97 [place] # (Auto) 1.3 H Eos # (Auto) 0.0 Baso # (Auto) 0.0 Abs Immat Gran (auto) 0.08 H Absolute Neuts (auto) 13.4 H Absolute Nucleated RBC 0.000 Nucleated RBC % 0.0 Sodium 139 Potassium 4.4 Chloride 108 H Carbon Dioxide 27 Anion Gap 4 BUN 21 H Creatinine 1.10 Estim Creat Clear Calc 63 Estimated GFR > 60 Glucose 133 H Calcium 8.3 L Blood Type A Positive Antibody Screen Negative Post-procedural complaints: none Patient Feedback: Patient satisfied with anesthetic care.
[2024-05-13 08:00] VITALS: BP 136/73; PULSE 88; RESP 20; TEMP 36.2; O2SAT 97
[2024-05-13] MEDS: VITAMIN B COMPLEX CAPSULE 1 CAP PO (08:10)
[2024-05-13] MEDS: CELECOXIB 200 MG CAPSULE PO (08:10)
[2024-05-13] MEDS: APIXABAN 2.5 MG TABLET PO (08:10)
[2024-05-13] MEDS: CALCIUM/VITAMIN D 500 MG/5 MCG (200 I.U.) TABLET PO (08:10)
[2024-05-13] MEDS: LOVASTATIN 20 MG TABLET PO (08:11)
[2024-05-13] MEDS: THERAPEUTIC MULTIVITAMINS/MINERALS TAB (*BKC) 1 TABLET PO (08:11)
[2024-05-13] MEDS: TAMSULOSIN HCL 0.4 MG CAPSULE PO (08:11)
[2024-05-13] MEDS: SENNA/DOCUSATE SODIUM TABLET 2 TAB PO (08:11)
[2024-05-13] MEDS: polyethylene glycoL 3350 17 GM POWD.PACK PO (08:11)
--- NOTE | 2024-05-13 10:28 | P.PNOP_ITS ---
Progress Note: A&P Assessment and Plan (1) Osteoarthritis of left knee: Code(s): M17.12 - Unilateral primary osteoarthritis, left knee Status: Acute Assessment and Plan: Patient is postop day 1 after left total knee arthroplasty and cortisone injection to the right knee. His hemoglobin is 12.0 representing mild acute blood loss anemia. He is neurologically intact to the left leg. He has walked in physical therapy Romy weight and is tolerable. Complains of soreness in the mid anterior thigh today with physical therapy which is very typical. His dressing is dry he has mild swelling around the and ecchymosis laterally. Patient feels he is doing well and would like to be discharged this morning up. (2) Osteoarthritis of right knee: Code(s): M17.11 - Unilateral primary osteoarthritis, right knee Status: Acute Subjective Subjective Date/Time Seen: 05/13/24 10:28 Objective Data Vital Signs Vital Signs: Vital Signs - 24 hr 05/12/24 11:59 05/12/24 12:14 05/12/24 12:25 Temperature 36.5 C Pulse Rate 77 78 81 Respiratory Rate 13 12 12 Blood Pressure 98/55 L 104/65 109/62 Pulse Oximetry 96 96 97 Oxygen Delivery Simple Face Mask Simple Face Mask Simple Face Mask Oxygen Flow Rate 8 8 8 05/12/24 12:25 05/12/24 12:35 05/12/24 12:40 Temperature Pulse Rate 86 Respiratory Rate 16 Blood Pressure 106/69 Pulse Oximetry 99 98 98 Oxygen Delivery Simple Face Mask Room Air Room Air Oxygen Flow Rate 8 05/12/24 12:55 05/12/24 13:15 05/12/24 13:25 Temperature 36.9 C Pulse Rate 88 87 Respiratory Rate 20 16 Blood Pressure 106/56 L 125/67 Pulse Oximetry 100 98 Oxygen Delivery Room Air Room Air Oxygen Flow Rate 05/12/24 13:30 05/12/24 14:00 05/12/24 14:04 Temperature 36.2 C L 36.2 C L Pulse Rate 93 93 Respiratory Rate 18 20 Blood Pressure 120/82 124/65 Pulse Oximetry 97 96 Oxygen Delivery Room Air Oxygen Flow Rate 05/12/24 15:00 05/12/24 18:38 05/12/24 22:44 Temperature 35.8 C L 36.6 C 37.1 C Pulse Rate 100 103 H 96 Respiratory Rate 20 16 18 Blood Pressure 109/92 H 158/68 H 135/78 Pulse Oximetry 97 96 96 Oxygen Delivery Oxygen Flow Rate 05/13/24 02:42 05/13/24 05:46 05/13/24 08:00 Temperature 36.9 C 37.0 C 36.2 C L Pulse Rate 91 94 88 Respiratory Rate 16 16 20 Blood Pressure 123/70 105/63 136/73 Pulse Oximetry 96 99 97 Oxygen Delivery Oxygen Flow Rate Intake/Output Intake/Output: Intake & Output 05/10/24 05/11/24 05/12/24 05/13/24 23:59 23:59 23:59 23:59 Intake Total 1040 Balance 1040 Meds/Results Medications: Active Medications Generic Name Dose Route Start Last Admin Trade Name Freq PRN Reason Stop Dose Admin Acetaminophen 1,000 mg 05/12/24 13:00 05/13/24 06:22 Acetaminophen 500 Mg Tablet PO 1,000 mg Q6H EZEQUIEL Administration Apixaban 2.5 mg 05/13/24 09:00 05/13/24 08:10 Apixaban 2.5 Mg Tablet PO 2.5 mg Q12HR EZEQUIEL Administration Artificial Tears 1 drop 05/12/24 13:06 Artificial Tears Ophth Soln 15 Ml Bottle EACH EYE Q2H PRN Dry Eye(s) Calcium Carbonate 500 mg 05/13/24 09:00 05/13/24 08:10 Calcium/Vitamin D 500 Mg/5 Mcg (200 I.U.) Tablet PO 500 mg QAM EZEQUIEL Administration Cefdinir 300 mg 05/13/24 11:00 Cefdinir 300 Mg Capsule PO Q12H EZEQUIEL Celecoxib 200 mg 05/13/24 08:00 05/13/24 08:10 Celecoxib 200 Mg Capsule PO 200 mg DAILY@0800 EZEQUIEL Administration Lovastatin 20 mg 05/13/24 09:00 05/13/24 08:11 Lovastatin 20 Mg Tablet PO 20 mg DAILY EZEQUIEL Administration Morphine Sulfate 2 mg 05/12/24 12:59 Morphine Sulfate (*Crx) 2 Mg/Ml Inj IV PUSH Q1H PRN Pain Rated 7-10 Multivitamins/Calcium 1 tablet 05/13/24 09:00 05/13/24 08:11 Therapeutic Multivitamins/Minerals Tab (*Bkc) PO 1 tablet DAILY EZEQUIEL Administration Naloxone HCl 0.1 mg 05/12/24 12:59 Naloxone Hcl 0.4 Mg/Ml Vial IV PUSH Q2M PRN Opiate Reversal Ondansetron HCl 4 mg 05/12/24 12:59 Ondansetron Inj 4 Mg/2 Ml Vial IV PUSH Q4H PRN Nausea And Vomiting Oxycodone HCl 5 mg 05/12/24 14:00 05/13/24 09:33 Oxycodone Hcl (*Crx) 5 Mg Tab Ir PO 5 mg Q4H EZEQUIEL Administration Oxycodone HCl 5 mg 05/12/24 12:59 Oxycodone Hcl (*Crx) 5 Mg Tab Ir PO Q4H PRN Pain Rated 4-10 Polyethylene Glycol 17 gm 05/13/24 09:00 05/13/24 08:11 Polyethylene Glycol 3350 17 Gm Powd.Pack PO 17 gm QAM EZEQUIEL Administration Senna/Docusate Sodium 2 tab 05/12/24 17:00 05/13/24 08:11 Senna/Docusate Sodium Tablet PO 2 tab BID EZEQUIEL Administration Tamsulosin HCl 0.4 mg 05/13/24 09:00 05/13/24 08:11 Tamsulosin Hcl 0.4 Mg Capsule PO 0.4 mg DAILY EZEQUIEL Administration Vitamin B Complex 1 cap 05/13/24 09:00 05/13/24 08:10 Vitamin B Complex Capsule PO 1 cap DAILY EZEQUIEL Administration Radiology Results: ITS Impressions Knee X-Ray 05/12/24 12:18 IMPRESSION: 1. Recent left total knee arthroplasty. Labs Labs: Laboratory Results - last 24 hr 05/13/24 07:09 WBC 15.8 H RBC 3.75 L Hgb 12.0 L D Hct 35.8 L MCV 95.5 MCH 32.0 MCHC 33.5 RDW 13.3 Plt Count 167 MPV 9.2 Immature Gran % (Auto) 0.5 Neut % (Auto) 84.8 H Lymph % (Auto) 6.2 L [place] % (Auto) 8.4 Eos % (Auto) 0.0 Baso % (Auto) 0.1 L Lymph # (Auto) 0.97 [place] # (Auto) 1.3 H Eos # (Auto) 0.0 Baso # (Auto) 0.0 Abs Immat Gran (auto) 0.08 H Absolute Neuts (auto) 13.4 H Absolute Nucleated RBC 0.000 Nucleated RBC % 0.0 Sodium 139 Potassium 4.4 Chloride 108 H Carbon Dioxide 27 Anion Gap 4 BUN 21 H Creatinine 1.10 Estim Creat Clear Calc 63 Estimated GFR > 60 Glucose 133 H Calcium 8.3 L
--- NOTE | 2024-05-13 10:53 | PM.DS ---
DS: Admitting Diagnosis Discharge Date 05/13/2024 Admitting Diagnosis Osteoarthritis both knees DS: Summary Hospital Course Hospital Course: Patient underwent left total knee arthroplasty and cortisone injection into the right knee . His postoperative course has been uneventful. Time Spent with Patient Time attestation: Total time spent providing and/or coordinating discharge services: DS: Data Data Completed and Pending Labs on day of discharge: Labs from last 24 hours 05/13/24 07:09 WBC 15.8 H RBC 3.75 L Hgb 12.0 L D Hct 35.8 L MCV 95.5 MCH 32.0 MCHC 33.5 RDW 13.3 Plt Count 167 MPV 9.2 Immature Gran % (Auto) 0.5 Neut % (Auto) 84.8 H Lymph % (Auto) 6.2 L [place] % (Auto) 8.4 Eos % (Auto) 0.0 Baso % (Auto) 0.1 L Lymph # (Auto) 0.97 [place] # (Auto) 1.3 H Eos # (Auto) 0.0 Baso # (Auto) 0.0 Abs Immat Gran (auto) 0.08 H Absolute Neuts (auto) 13.4 H Absolute Nucleated RBC 0.000 Nucleated RBC % 0.0 Sodium 139 Potassium 4.4 Chloride 108 H Carbon Dioxide 27 Anion Gap 4 BUN 21 H Creatinine 1.10 Estim Creat Clear Calc 63 Estimated GFR > 60 Glucose 133 H Calcium 8.3 L Discharge Plan Discharge Patient Disposition: Home, Self-Care Discharge Instructions: WENDY BANKS M.D [facility] [address] [place] [address] [address] [place] [address] POST-OPERATIVE DISCHARGE INSTRUCTIONS TOTAL KNEE ARTHROPLASTY 1. When resting, do not rest in the chair.When resting, lie on your back, with back flat on the couch or bed, with leg elevated above heart to minimize swelling. You may put a pillow under your head. . Significant swelling could indicate a blood clot and if this occurs call the office (or go to the ER) to have a venous ultrasound. Therefore, do not rest in a chair. 2. At least five times a day spend several minutes stretching your knee into flexion while sitting in the chair and also stretching your knee out straight The abilities to bend your knee fully and straighten your knee fully are two most important knee functions to focus on during your recovery. 3. It is ok to sit in chair to eat, use the toilet and receive a guest and to do your stretching exercises, but, sitting in a chair will cause your leg to swell. Therefore, avoid additional time sitting in the chair. and don't rest in the chair. 4. Wound Care: Nursing will give you an additional Mepilex/Aquacell dressing at the time of discharge. Patient to remove the dressing and apply a new Mepilex/Aquacell dressing at home 7 days after surgery and leave the dressing on until seen in office. It is normal to see a small amount of blood on the silver pad of the Mepilex/Aquacell dressing. Its designed to hold small spots of blood. However, if the blood reaches the edge of the pad up to the boarder of the clear membrane that surrounds the pad, the pad is saturated and the Mepilex/Aquacell dressing should be removed and a new Mepilex/Aquacell dressing should be applied. 5. May shower with a Mepilex/Aquacell dressing in place.The water will run off the dressing. 6. Unless you are told otherwise, you may put full weight on your operated leg. Use a walker for balance and practice walking as normally as you can, ideally for a few minutes every hour while you are awake. 7. I would advise against putting ice packs on your knee incision. Ice constricts blood flow which can impar healing of the knee incision. IMPORTANT: Remember not to sit in the chair for more than 30 minutes at a time. As a rule, during the first 14 days after surgery, only sit in the chair to work on the chair knee bending stretch exercise, for meals or for use of the restroom. Sitting in the chair promotes significant swelling in the knee and leg which will make your knee stiff and more painful and which simulates having a blood clot in the veins of the leg. If this type of significant diffuse swelling occurs, an ultrasound at the hospital will be necessary to rule out a blood clot. Be up walking around with the walker for a few minutes every hour while awake and then rest laying on your back on the couch or in bed with your leg elevated on cushions or pillows. Do not rest in the chair. Additional notes: It is important to control your pain. Controlling the pain in these 1st few weeks is the best way for you to achieve goal of avoiding any getting stiff as if your pain is well controlled he will be able to bend it better and straight and fully. With respect to the oxycodone, you may take 1 or 2 every 4 hours as needed. Take the Tylenol 1000 mg q.6 hours around the clock scheduled. And the Celebrex 200 mg once daily will be very helpful in controlling her pain as well. Do NOT resume the Meloxicam. We are using Celebrex for now. In 6 or 8 weeks after you finish the Celebrex, you may resume meloxicam. Make sure you take the stool softeners as ordered. Many patients who think they do not need it and do not take it developed severe constipation due to the pain medication. Once you finish the oxycodone, you will not need the stool softeners any longer. And again, make sure to avoid resting in the chair. Rest with her back flat on the couch or in bed and the on several pillows or cushions otherwise your knee will become extremely swollen. Patient Language: [place] Timorese Discharge Medications: New celecoxib [Celebrex] 200 mg Capsule 200 mg PO DAILY@0800 Qty: 30 0RF polyethylene glycol 3350 [Miralax] 17 gram Powder In Packet 17 g PO QAM Qty: 30 0RF sennosides-docusate sodium [Senokot-S] 8.6-50 mg Tablet 2 tab PO BID Qty: 120 0RF acetaminophen 500 mg Tablet 1,000 mg PO Q6H Qty: 100 0RF cefdinir 300 mg Capsule 300 mg PO Q12H Qty: 14 0RF oxycodone 5 mg Tablet 5 mg PO Q4H PRN (Reason: Pain Rated 4-10) Qty: 40 0RF Artificial Tears(np-mrdm-[id number]) 1-0.2-0.2 % Drops 1 drp EACH EYE Q2H PRN (Reason: Dry Eye(S)) Qty: 30 0RF Eliquis 2.5 mg Tablet 2.5 mg PO Q12HR Qty: 28 0RF Continued calcium carbonate-vitamin D3 600 mg-20 mcg (800 unit) tablet 1 tablet PO DAILY vitamin B complex Capsule 1 cap PO DAILY tamsulosin 0.4 mg capsule 0.4 mg PO DAILY lovastatin 20 mg tablet 20 mg PO DAILY multivit with min-folic acid 0.4 mg Tablet 1 tablet PO DAILY Discontinued coenzyme Q10 [Co Q-10] 400 mg capsule 800 mg PO DAILY glucosamine-chondroitin 900 mg tablet 3,000 mg PO DAILY acetaminophen 500 mg tablet 1,000 mg PO Q4-6H PRN (Reason: pain) meloxicam 15 mg tablet 15 mg PO DAILY
--- NOTE | 2024-05-13 11:00 | P.PNIM_ITS ---
Progress Note: A&P Assessment and Plan (1) Osteoarthritis of left knee: Code(s): M17.12 - Unilateral primary osteoarthritis, left knee Status: Acute Assessment and Plan: - s/p Left total knee arthroplasty. - Pain meds PRN. continue care adn follow up with ortho. patient stable from medical standpoint for discharge (2) Osteoarthritis of right knee: Code(s): M17.11 - Unilateral primary osteoarthritis, right knee Status: Acute Assessment and Plan: - s/p Cortisone injection per Ortho. - Continue pain meds PRN. - Further mgt per Ortho. (3) Enlarged prostate: Code(s): N40.0 - Benign prostatic hyperplasia without lower urinary tract symptoms Status: Acute Assessment and Plan: - Continue Tamsulosin. (4) Dyslipidemia: Code(s): E78.5 - Hyperlipidemia, unspecified Status: Acute Assessment and Plan: - Continue statin. Plan DVT prophylaxis per orthopedic team Subjective Date/time seen: 05/13/24 11:00 Interval history: Patient comfortable at bedside Surgical site clean and dry Patient stable from medical standpoint for discharge Review of Systems Review of Systems: All systems reviewed & are unremarkable except as noted in HPI and below Exam Narrative: General: Well appearing, no acute distress. HEENT: Atraumatic, PERRL, EOM, anicteric, moist mucosa. NECK: Supple. Lungs: Clear bilaterally. Heart: RRR, no murmurs. Abdomen: Soft, non-tender, non-distended, +BS X4 quadrants. Extremities: No cyanosis, no edema. Skin: Warm and dry. Surgical drsg L.Knee clean, dry and intact. Neuro: Well oriented. CN II-XII grossly intact. Psych: Pleasant and co-operative. Objective Data Vital Signs Vital Signs: Vital Signs - 24 hr 05/12/24 11:59 05/12/24 12:14 05/12/24 12:25 Temperature 97.7 F Pulse Rate 77 78 81 Respiratory Rate 13 12 12 Blood Pressure 98/55 L 104/65 109/62 Pulse Oximetry 96 96 97 Oxygen Delivery Simple Face Mask Simple Face Mask Simple Face Mask Oxygen Flow Rate 8 8 8 05/12/24 12:25 05/12/24 12:35 05/12/24 12:40 Temperature Pulse Rate 86 Respiratory Rate 16 Blood Pressure 106/69 Pulse Oximetry 99 98 98 Oxygen Delivery Simple Face Mask Room Air Room Air Oxygen Flow Rate 8 05/12/24 12:55 05/12/24 13:15 05/12/24 13:25 Temperature 98.4 F Pulse Rate 88 87 Respiratory Rate 20 16 Blood Pressure 106/56 L 125/67 Pulse Oximetry 100 98 Oxygen Delivery Room Air Room Air Oxygen Flow Rate 05/12/24 13:30 05/12/24 14:00 05/12/24 14:04 Temperature 97.1 F L 97.1 F L Pulse Rate 93 93 Respiratory Rate 18 20 Blood Pressure 120/82 124/65 Pulse Oximetry 97 96 Oxygen Delivery Room Air Oxygen Flow Rate 05/12/24 15:00 05/12/24 18:38 05/12/24 22:44 Temperature 96.4 F L 97.8 F 98.7 F Pulse Rate 100 103 H 96 Respiratory Rate 20 16 18 Blood Pressure 109/92 H 158/68 H 135/78 Pulse Oximetry 97 96 96 Oxygen Delivery Oxygen Flow Rate 05/13/24 02:42 05/13/24 05:46 05/13/24 08:00 Temperature 98.4 F 98.6 F 97.2 F L Pulse Rate 91 94 88 Respiratory Rate 16 16 20 Blood Pressure 123/70 105/63 136/73 Pulse Oximetry 96 99 97 Oxygen Delivery Oxygen Flow Rate Intake/Output Intake/Output: Intake & Output 05/10/24 05/11/24 05/12/24 05/13/24 23:59 23:59 23:59 23:59 Intake Total 1040 250 Balance 1040 250 Meds/Results Medications: Active Medications Generic Name Dose Route Start Last Admin Trade Name Ron PRN Reason Stop Dose Admin Acetaminophen 1,000 mg 05/12/24 13:00 05/13/24 06:22 Acetaminophen 500 Mg Tablet PO 1,000 mg Q6H EZEQUIEL Administration Apixaban 2.5 mg 05/13/24 09:00 05/13/24 08:10 Apixaban 2.5 Mg Tablet PO 2.5 mg Q12HR EZEQUIEL Administration Artificial Tears 1 drop 05/12/24 13:06 Artificial Tears Ophth Soln 15 Ml Bottle EACH EYE Q2H PRN Dry Eye(s) Calcium Carbonate 500 mg 05/13/24 09:00 05/13/24 08:10 Calcium/Vitamin D 500 Mg/5 Mcg (200 I.U.) Tablet PO 500 mg QAM EZEQUIEL Administration Cefdinir 300 mg 05/13/24 11:00 Cefdinir 300 Mg Capsule PO Q12H EZEQUIEL Celecoxib 200 mg 05/13/24 08:00 05/13/24 08:10 Celecoxib 200 Mg Capsule PO 200 mg DAILY@0800 EZEQUIEL Administration Lovastatin 20 mg 05/13/24 09:00 05/13/24 08:11 Lovastatin 20 Mg Tablet PO 20 mg DAILY EZEQUIEL Administration Morphine Sulfate 2 mg 05/12/24 12:59 Morphine Sulfate (*Crx) 2 Mg/Ml Inj IV PUSH Q1H PRN Pain Rated 7-10 Multivitamins/Calcium 1 tablet 05/13/24 09:00 05/13/24 08:11 Therapeutic Multivitamins/Minerals Tab (*Bkc) PO 1 tablet DAILY EZEQUIEL Administration Naloxone HCl 0.1 mg 05/12/24 12:59 Naloxone Hcl 0.4 Mg/Ml Vial IV PUSH Q2M PRN Opiate Reversal Ondansetron HCl 4 mg 05/12/24 12:59 Ondansetron Inj 4 Mg/2 Ml Vial IV PUSH Q4H PRN Nausea And Vomiting Oxycodone HCl 5 mg 05/12/24 14:00 05/13/24 09:33 Oxycodone Hcl (*Crx) 5 Mg Tab Ir PO 5 mg Q4H EZEQUIEL Administration Oxycodone HCl 5 mg 05/12/24 12:59 Oxycodone Hcl (*Crx) 5 Mg Tab Ir PO Q4H PRN Pain Rated 4-10 Polyethylene Glycol 17 gm 05/13/24 09:00 05/13/24 08:11 Polyethylene Glycol 3350 17 Gm Powd.Pack PO 17 gm QAM EZEQUIEL Administration Senna/Docusate Sodium 2 tab 05/12/24 17:00 05/13/24 08:11 Senna/Docusate Sodium Tablet PO 2 tab BID EZEQUIEL Administration Tamsulosin HCl 0.4 mg 05/13/24 09:00 05/13/24 08:11 Tamsulosin Hcl 0.4 Mg Capsule PO 0.4 mg DAILY EZEQUIEL Administration Vitamin B Complex 1 cap 05/13/24 09:00 05/13/24 08:10 Vitamin B Complex Capsule PO 1 cap DAILY EZEQUIEL Administration Radiology Results: ITS Impressions Knee X-Ray 05/12/24 12:18 IMPRESSION: 1. Recent left total knee arthroplasty. Labs Labs: Laboratory Results - last 24 hr 05/13/24 07:09 WBC 15.8 H RBC 3.75 L Hgb 12.0 L D Hct 35.8 L MCV 95.5 MCH 32.0 MCHC 33.5 RDW 13.3 Plt Count 167 MPV 9.2 Immature Gran % (Auto) 0.5 Neut % (Auto) 84.8 H Lymph % (Auto) 6.2 L [place] % (Auto) 8.4 Eos % (Auto) 0.0 Baso % (Auto) 0.1 L Lymph # (Auto) 0.97 [place] # (Auto) 1.3 H Eos # (Auto) 0.0 Baso # (Auto) 0.0 Abs Immat Gran (auto) 0.08 H Absolute Neuts (auto) 13.4 H Absolute Nucleated RBC 0.000 Nucleated RBC % 0.0 Sodium 139 Potassium 4.4 Chloride 108 H Carbon Dioxide 27 Anion Gap 4 BUN 21 H Creatinine 1.10 Estim Creat Clear Calc 63 Estimated GFR > 60 Glucose 133 H Calcium 8.3 L Quality VTE Prophylaxis VTE prophylaxis: mechanical ordered
[2024-05-13 12:01] VITALS: BP 108/56; PULSE 82; RESP 18; TEMP 36; O2SAT 95
[2024-05-13] MEDS: CEFDINIR 300 MG CAPSULE PO (12:03)
--- OUTSIDE RECORDS SUMMARY | 2024-05-18 13:11 | XMS_ITS | Encounter Summary ---
Author Organization [facility] Healthcare Address [address] [place] [address] Care Team Providers Care American Indian Policy Specialist Name Role Phone Diana Garcias MD Primary Care Provider + [phone] Reason for Referral * Diagnostic Imaging (Routine) - Closed Specialty Diagnoses / Procedures Referred By [place] flores Referred To Contact Radiology Diagnoses Elevated PSA Procedures MRI Pelvis Prostate W WO Contrast Deon Mead MD Phone: tel: fax: [address] [place] [address] Referral ID Status Reason Start Date Expiration Date Visits Re quested Visits Authorized [id number] Closed 06/30/2020 07/29/2020 1 1 OR INSIGHT MANAGER Reason for Visit * Diagnostic Imaging (Routine) - Closed Specialty Diagnoses / Procedures Referred By Rio flores Referred To Contact Radiology Diagnoses Elevated PSA Procedures MRI Pelvis Prostate W WO Contrast Deon Mead MD Phone: tel: fax: [address] [place] [address] Referral ID Status Reason Start Date Expiration Date Visits Re quested Visits Authorized [id number] Closed 06/30/2020 07/29/2020 1 1 Encounter Details Date Type Department Care Team (Latest Contact Info) Description 07/16/2020 7:44 AM SENIOR INSIGHT MANAGER - 07/16/2020 11:59 PM SENIOR INSIGHT MANAGER Hospital Encounter [facility] [id number] [id number] [place] [address] [place] [address] Elevated PSA Discharge Disposition: Discharge to home or self care Social History Tobacco Use Types Packs/Day Years Used Date Smoking Tobacco: Never Smokeless Tobacco: Never Sex and Gender Information Value Date Recorded Sex Assigned at Not on file Legal Sex Male 11:22 AM SENIOR INSIGHT MANAGER Gender Identity Male 02/20/2021 10:08 AM CDT Sexual Orientation Straight 02/20/2021 10 :08 AM CDT documented as of this encounter Medications at Time of Discharge meloxicam (MOBIC) 15 mg tablet TAKE ONE TABLET BY MOUTH DAILY 05/03/2015 documented as of this encounter Discharge Disposition Disposition Code Departure Means Destination Discharge to home or self care documented in this encounter Plan of Treatment Not on file documented as of this encounter Procedures Procedure Name Priority Date/Time Associated Diagnosis Comments MRI PELVIS PROSTATE W WO CONTRAST Schedule Routine, Read Routine (OP Routine) 07/16/2020 9:09 AM SENIOR INSIGHT MANAGER Elevated PSA POC ISTAT Routine 07/16/2020 8:23 AM SENIOR INSIGHT MANAGER documented in this encounter Results * MRI Pelvis Prostate W WO Contrast (07/16/2020 9:09 AM SENIOR INSIGHT MANAGER) Anatomical Region Laterality Modality Body N/A Magnetic Resonan ce 07/16/2020 9:50 AM SENIOR INSIGHT MANAGER Impressions 07/16/2020 4:12 PM SENIOR INSIGHT MANAGER There are no suspicious lesions in the prostate (PI-RADS 3 or greater). Dictated by: Lalit Duron M.D. The radiology attending physician has personally reviewed this study, and had reviewed and/or edited this written report and agrees with it. Electronically signed by: Westley Damico M.D. Narrative 07/16/2020 4:12 PM SENIOR INSIGHT MANAGER EXAMINATION: MAGNETIC RESONANCE IMAGING OF THE PELVIS WITHOUT AND WITH CONTRAST HISTORY: 65-year-old male with elevated PSA = 4.3 ng/mL by report, previously 2.6 ng/mL in 2018. TECHNIQUE: MR imaging of the prostate gland was performed with a torso phased array coil at 3T prior to and following administration of intravenous gadolinium. Protocol: Prostate 3T Contrast: Dotarem 16 mL COMPARISON: No prior magnetic resonance imaging is available for comparison. FINDINGS: Prostate volume: 72.6 cc The prostate transition zone is enlarged with benign prostatic hyperplasia. Subtle bandlike T2 hypointensity in the left peripheral zone without associated DWI/ADC abnormality likely represents sequela of prostatitis. The prostate was assessed using the PI-RADS version v2.1 scoring system. There are no suspicious lesions in the prostate (PI-RADS 3 or greater) Staging Information: ??No enlarged lymph nodes are identified. No suspicious osseous lesions are identified. Other findings: No abnormal bowel wall thickening or evidence of obstruction. Urinary bladder is unremarkable. No ascites. Procedure Note Westley Damico MD PhD - 07/16/2020 EXAMINATION: MAGNETIC RESONANCE IMAGING OF THE PELVIS WITHOUT AND WITH CONTRAST HISTORY: 65-year-old male with elevated PSA = 4.3 ng/mL by report, previously 2.6 ng/mL in 2018. TECHNIQUE: MR imaging of the prostate gland was performed with a torso phased array coil at 3T prior to and following administration of intravenous gadolinium. Protocol: Prostate 3T Contrast: Dotarem 16 mL COMPARISON: No prior magnetic resonance imaging is available for comparison. FINDINGS: Prostate volume: 72.6 cc The prostate transition zone is enlarged with benign prostatic hyperplasia. Subtle bandlike T2 hypointensity in the left peripheral zone without associated DWI/ADC abnormality likely represents sequela of prostatitis. The prostate was assessed using the PI-RADS version v2.1 scoring system. There are no suspicious lesions in the prostate (PI-RADS 3 or greater) Staging Information: No enlarged lymph nodes are identified. No suspicious osseous lesions are identified. Other findings: No abnormal bowel wall thickening or evidence of obstruction. Urinary bladder is unremarkable. No ascites. IMPRESSION: There are no suspicious lesions in the prostate (PI-RADS 3 or greater). Dictated by: Lalit J Young, M.D. The radiology attending physician has personally reviewed this study, and had reviewed and/or edited this written report and agrees with it. Electronically signed by: Westley Damico M.D. us Deon Mead MD IMG MRI PROCEDURES Final Resu lt * POC ISTAT (07/16/2020 8:23 AM SENIOR INSIGHT MANAGER) Creatinine, POC, bld 1.2 0.6 - 1.3 mg/dL HUGH ROSALES Comment: Interpretive data Creatinine <1.5 mg/dL and stable receive IV contrast. Creatinine 1.5-1.9 mg/dL and stable use Visipaque IV contrast. Current interpretive data last reviewed 2015. POC Device Number [id number] HUGH SOLIS POC Performer [id number] HUGH ROSALES Blood specimen (specimen) 07/16/2020 8:23 AM SENIOR INSIGHT MANAGER 07/16/2020 8:23 AM SENIOR INSIGHT MANAGER Deon Mead MD LAB BLOOD ORDERABLES Final Re sult [facility] [id number] [facility]. Department [place] [employer] [place] [address] documented in this encounter Visit Diagnoses Diagnosis Elevated PSA Elevated prostate specific antigen (PSA) documented in this encounter Administered Medications Inactive Administered Medications - up to 3 most recent administrations Medication Order MAR Action Action Date Dose Rate Site gadoterate meglumine (DOTAREM) 0.5 mmol/mL injection 0.1 mmol/kg 0.1 mmol/kg, intravenous, Once in imaging, contrast, Starting on Sun07/16/20 at 0829, For 1 dose, Imaging Protocol Orders Given 07/16/2020 8:30 AM SENIOR INSIGHT MANAGER 16 mL sodium chloride 0.9% flush 125 mL 125 mL, intravenous, Once, On Sun07/16/20 at 0915, For 1 dose Given 07/16/2020 8:31 AM SENIOR INSIGHT MANAGER 125 mL documented in this encounter Care Teams American Indian Policy Specialist Relationship Specialty Start Date End Date Diana Garcias MD [address] [place] [address] PCP - General 09/11/16 documented as of this encounter
--- OUTSIDE RECORDS SUMMARY | 2024-05-18 13:11 | XMS_ITS | Encounter Summary ---
Author Organization [facility] Address [address] [place] [address] Phone Care Team Providers Care Teacher Hearing Impaired Name Role Phone Diana Garcias MD Primary Care Provider [phone] Reason for Visit * Consultation (Routine) - Closed Specialty Diagnoses / Procedures Referred By [place] fl[place] Referred To Contact Urology Diagnoses Encounter for consultation Diana Garcias MD [address] [place] [address] Phone: tel: fax: [facility] (All Locations) Referral ID Status Reason Start Date Expiration Date V isits Requested Visits Authorized [id number] Closed Specialty Services Required 06/09/2020 07/09/2021 99 [phone] Encounter Details Date Type Department Care Team (Late st Contact Info) Description 06/28/2020 9:40 AM HOIST MECHANIC Office Visit [facility] [place] Urology [address] [facility] [address] [place] [address] [place] [address] [facility] [address] [facility] [address] [place] [address] Elevated PSA (Primary Dx); Encounter for consultation Social History Tobacco Use Types Packs/Day Years Used Date Smoking Tobacco: Never Smokeless Tobacco: Never Sex and Gender Information Value Date Recorded Sex Assigned at Not on file Legal Sex Male 11:22 AM HOIST MECHANIC Gender Identity Male 02/20/2021 10:08 AM CDT Sexual Orientation Straight 02/20/2021 10 :08 AM CDT documented as of this encounter Progress Notes * Deon Mead MD - 06/28/2020 9:40 AM CST Urology History and Physical Chief complaints: Elevated PSA HPI: Velasquez Murphy is a 65 y.o. male presents with an elevated PSA of 4.3. His previous PSA had been 2.6 in 2018. He denies significant lower urinary tract symptoms, hematuria and dysuria. He denies fever, loin pain or suprapubic discomfort. He denies prior urological instrumentations / surgeries or recurrent urinary tract infections or calculus disease. History reviewed. No pertinent past medical history. History reviewed. No pertinent surgical history. Social History Tobacco Use ??? Smoking status: Never Smoker ??? Smokeless tobacco: Never Used Substance Use Topics ??? Alcohol use: Not on file Family History Problem Relation Age of Onset ??? Heart disease Mother Family history of cardiac disorder - (Added by TW Conv) ??? Heart disease Father Family history of cardiac disorder - (Added by TW Conv) ??? Arthritis Mother Family history of arthritis - (Added by TW Conv) ??? Arthritis Father Family history of arthritis - (Added by TW Conv) ??? Hypertension Father Family history of hypertension - (Added by TW Conv) ??? Stroke Father Family history of cerebrovascular accident (CVA) - (Added by TW Conv) ??? Cancer Father Family history of malignant neoplasm - (Added by TW Conv) ??? Lung disease Father Lung trouble - (Added by TW Conv) (Not in a hospital admission) No Known Allergies Review of Systems: All other symptoms except HPI are negative Objective: Vitals: There were no vitals taken for this visit. Physical exam: General: Does not appear in acute distress; No pain present Head: Normocephalic/Atraumatic Eyes: No discharge noted; (R,L) extraocular movements are intact; Ears: (R,L) hearing grossly normal Nose/Mouth/Throat: Mucous membranes moist Neck: Neck inspection is normal; neck ROM normal Respiratory: Has normal respiratory effort; l Exam:JUANIS: Smooth enlarged prostate. NO nodules. 40 cc Extremities: (R,L) [place] and warm; no edema Musculoskeletal: Normal range of motion present Neurology: Patient is alert and oriented to person, place and time. Mood: Has normal mood and affect Lab/Radiology/Diagnostic Review: No results found for any visits on 06/28/20. Assessment: Velasquez Murphy is a 65 y.o. male presenting for elevated PSA. Physical exam revealed benign enlarged prostate. I had a long discussion with the patient regarding various causes of an elevated PSA including prostate cancer. A true elevation of PSA is suspicious for prostate cancer and will require further evaluation with a prostate biopsy. Additional PSA parameters like % free PSA, PSA density and PSA velocity can aid in decision making for a prostate biopsy in patients with an elevated PSA. I also discussed the role of magnetic resonance imaging and tests like 4K core in patients with elevated PSA. I explained in detail about the various outcomes of prostate biopsy and further decision will be taken based on the biopsy reports. The prostate biopsy procedure, expected complications including infection and sepsis and recovery from the procedure was explained to the patient. Plan: Prostate MRI Deon Mead MD Faculty, Urology division, Department of surgery, [facility] [employer] ([facility]) [facility] [place] ([facility]) T MECHANIC documented in this encounter Plan of Treatment Not on file documented as of this encounter Visit Diagnoses Diagnosis Elevated PSA- Primary Elevated prostate specific antigen (PSA) Encounter for consultation documented in this encounter Orders Outpatient Referral Count Last Ordered Date st Ordered Date AMB REFERRAL TO UROLOGY 1 06/28/2020 documented in this encounter Care Teams Teacher Hearing Impaired Relationship Specialty Start Date End Date Diana Garcias MD [address] [place] [address] PCP - General 09/11/16 documented as of this encounter
--- OUTSIDE RECORDS SUMMARY | 2024-05-18 13:11 | XMS_ITS | Encounter Summary ---
Author Organization [facility] Healthcare Address [address] [place] [address] Care Team Providers Care Security Field Supervisor Name Role Phone Miscellaneous, Not In File Primary Care Provider Unavailable Encounter Details Date Type Department Care Team (Latest Contact Info) Description 09/01/2016 12:08 PM CDT - 09/01/2016 11:59 PM CDT Hospital Encounter [facility] [phone] Amrik Posada MD [address] [place] [address] Mary Schrader PA [address] [place] [address] Discharge Disposition: Discharge to home or self care Social History Tobacco Use Types Packs/Day Years Used Date Smoking Tobacco: Never Assessed Sex and Gender Information Value Date Recorded Sex Assigned at Not on file Legal Sex Male 11:22 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 FINAL REPORT ACC# ??Date Time ??Exam [id number] Sep 01, 2016 12:21:00 [id number] Hip Uni ??and ??Pel if done 2-3v R EXAMINATION: ?? 1. Right hip unilateral with pelvis 2 or 3 views HISTORY: Hip osteoarthritis FINDINGS: Two view submitted with comparison 05/03/2015. There are no acute fractures. The femoral heads are well-seated. Minimal bilateral hip osteoarthritis is present. Right femoral neck synovial herniation pits are noted. IMPRESSION: ?? 1. Unchanged minimal bilateral hip osteoarthritis. 2. Right femoral neck synovial herniation pits can be associated with impingement related to asphericity. Requested By: MARY SCHRADER PA-C Dictated By: ?? JORDAN SIMON M.D. ??on Sep 01 2016 12:26P This document has been electronically signed by: JORDAN SIMON M.D. on Sep 01 2016 12:26P [id number] Procedure Note Miscellaneous, Not In File / Provider, MD Kar - 09/30/2016 JORDAN SIMON M.D. FINAL REPORT ACC# Date Time Exam [id number] Sep 01, 2016 12:21:00 [id number] Hip Uni and Pel if done 2-3v R EXAMINATION: 1. Right hip unilateral with pelvis 2 or 3 views HISTORY: Hip osteoarthritis FINDINGS: Two view submitted with comparison 05/03/2015. There are no acute fractures. The femoral heads are well-seated. Minimal bilateral hip osteoarthritis is present. Right femoral neck synovial herniation pits are noted. IMPRESSION: 1. Unchanged minimal bilateral hip osteoarthritis. 2. Right femoral neck synovial herniation pits can be associated with impingement related to asphericity. Requested By: MARY SCHRADER PA-C Dictated By: JORDAN SIMON M.D. on Sep 01 2016 12:26P This document has been electronically signed by: JORDAN SIMON M.D. on Sep 01 2016 12:26P [id number] us Not In File Miscellaneous IMG XR PROCEDURES Judith l Result documented in this encounter Visit Diagnoses Not on filedocumented in this encounter Care Teams Security Field Supervisor Relationship Specialty Start Date End Date Miscellaneous, Not In File PCP - General 09/01/16 7 documented as of this encounter
--- OUTSIDE RECORDS SUMMARY | 2024-05-18 13:11 | XMS_ITS | Encounter Summary ---
Author Organization [facility] Address [address] [place] [address] Phone Care Team Providers Care Wound Care Coordinator Name Role Phone Diana Garcias MD Primary Care Provider [phone] Encounter Details Date Type Department Care Team (Late st Contact Info) Description 03/16/2021 Telephone [facility] Surgery [address] [place], [place] [id number] Christine Webb, [facility] Social History Tobacco Use Types Packs/Day Years Used Date Smoking Tobacco: Never Smokeless Tobacco: Never Sex and Gender Information Value Date Recorded Sex Assigned at Not on file Legal Sex Male 11:22 AM ASSISTANT PROFESSOR OF ART Gender Identity Male 02/20/2021 10:08 AM CDT Sexual Orientation Straight 02/20/2021 10 :08 AM CDT documented as of this encounter Miscellaneous Notes * Telephone Encounter - Kyung Conti MA - 04/06/2021 11:14 AM CST Lmom with results. Informed patient to f/u in 6 months with pcp with psa STANT PROFESSOR OF ART * Telephone Encounter - Deon Mead MD - 03/18/2021 5:55 PM CST Left VM STANT PROFESSOR OF ART * Telephone Encounter - Kyung Conti MA - 03/16/2021 8:13 PM CST Please see below STANT PROFESSOR OF ART * Telephone Encounter - Chritsine Webb RMA - 03/16/2021 8:46 AM ASSISTANT PROFESSOR OF ART Pts calling for pts 4k results. STANT PROFESSOR OF ART documented in this encounter Plan of Treatment Not on file documented as of this encounter Visit Diagnoses Not on filedocumented in this encounter Care Teams Wound Care Coordinator Relationship Specialty Start Date End Date Diana Garcias MD [address] [place], [place] [id number] PCP - General 09/11/16 documented as of this encounter
--- OUTSIDE RECORDS SUMMARY | 2024-05-18 13:11 | XMS_ITS | Encounter Summary ---
Author Organization [facility] Care Team Providers Care Larriman Name Role Phone Unavailable Primary Care Provider Unavailabl e Encounter Details Date Type Department Care Team (Late st Contact Info) Description 05/03/2015 - 05/03/2015 11:59 PM DUMPER OPERATOR Hospital [facility] MD [address] [facility] [address] [place] [address] Other specified acquired deformities of left thigh; Other specified acquired deformities of right thigh Social History Tobacco Use Types Packs/Day Years Used Date Smoking Tobacco: Never Assessed Sex and Gender Information Value Date Recorded Sex Assigned at Not on file Legal Sex Male 11:22 AM DUMPER OPERATOR Gender Identity Male 02/20/2021 10:08 AM CDT Sexual Orientation Straight 02/20/2021 10 :08 AM CDT documented as of this encounter Medications at Time of Discharge meloxicam (MOBIC) 15 mg tablet TAKE ONE TABLET BY MOUTH DAILY 05/03/2015 documented as of this encounter Plan of Treatment Not on file documented as of this encounter Procedures Procedure Name Priority Date/Time Associated Diagnosis Comments XR HIP (RADLINK) 1V Routine 05/03/2015 8 :41 AM DUMPER OPERATOR XR PELVIS 1 OR 2 VIEWS Routine 05/03/2015 8:41 AM DUMPER OPERATOR documented in this encounter Results * XR Pelvis (RadLink) 1 View (05/03/2015 8:41 AM DUMPER OPERATOR) Anatomical Region Laterality Modality Body, Pelvis N/A Radiographic Archana ging 05/03/2015 8:41 AM DUMPER OPERATOR Narrative 05/03/2015 8:49 AM DUMPER OPERATOR AMADOR NAIDU MD, PHD FINAL REPORT ACC# ??Date Time ??Exam [id number] May 03, 2015 08:41:00 [id number] Pelvis 1 or 2 views [id number] May 03, 2015 08:41:00 [id number] Hip Unilateral 1 view R EXAMINATION: ?Pelvis 1 or 2 views; right hip unilateral one view HISTORY: ??Right hip pain FINDINGS: ??AP view the pelvis excluding the top of both iliac crest single view the right hip are submitted without comparison. Both hip joint spaces are normal and symmetric. There is no acute fracture. There is decrease femoral head neck offset bilaterally. IMPRESSION: ?? 1. Bilateral femoral head asphericity Requested By: NOAH HINOJOSA M.D. Dictated By: ?? AMADOR NAIDU MD, PHD ??on May 03 2015 ??8:49A This document has been electronically signed by: AMADOR NAIDU MD, PHD on May 03 2015 ??8:49A [id number] Procedure Note Provider, MD Kar - 08/30/2016 AMADOR NAIDU MD, PHD FINAL REPORT ACC# Date Time Exam [id number] May 03, 2015 08:41:00 [id number] Pelvis 1 or 2 views [id number] May 03, 2015 08:41:00 [id number] Hip Unilateral 1 view R EXAMINATION: Pelvis 1 or 2 views; right hip unilateral one view HISTORY: Right hip pain FINDINGS: AP view the pelvis excluding the top of both iliac crest single view the right hip are submitted without comparison. Both hip joint spaces are normal and symmetric. There is no acute fracture. There is decrease femoral head neck offset bilaterally. IMPRESSION: 1. Bilateral femoral head asphericity Requested By: NOAH HINOJOSA M.D. Dictated By: AMADOR NAIDU MD, PHD on May 03 2015 8:49A This document has been electronically signed by: AMADOR NAIDU MD, PHD on May 03 2015 8:49A [id number] us Historical Provider IMGhazala XR PROCEDURES Final R esult * XR Hip (Radlink) 1 View (05/03/2015 8:41 AM DUMPER OPERATOR) Anatomical Region Laterality Modality Lower Extremities, Hip, Pelvis N/A R adiographic Imaging 05/03/2015 8:41 AM DUMPER OPERATOR Narrative 05/03/2015 8:49 AM DUMPER OPERATOR AMADOR NAIDU MD, PHD FINAL REPORT ACC# ??Date Time ??Exam [id number] May 03, 2015 08:41:00 [id number] Pelvis 1 or 2 views [id number] May 03, 2015 08:41:00 [id number] Hip Unilateral 1 view R EXAMINATION: ?Pelvis 1 or 2 views; right hip unilateral one view HISTORY: ??Right hip pain FINDINGS: ??AP view the pelvis excluding the top of both iliac crest single view the right hip are submitted without comparison. Both hip joint spaces are normal and symmetric. There is no acute fracture. There is decrease femoral head neck offset bilaterally. IMPRESSION: ?? 1. Bilateral femoral head asphericity Requested By: NOAH HINOJOSA M.D. Dictated By: ?? AMADOR NAIDU MD, PHD ??on May 03 2015 ??8:49A This document has been electronically signed by: AMADOR NAIDU MD, PHD on May 03 2015 ??8:49A [id number] Procedure Note Provider, MD Kar - 08/30/2016 AMADOR NAIDU MD, PHD FINAL REPORT ACC# Date Time Exam [id number] May 03, 2015 08:41:00 [id number] Pelvis 1 or 2 views [id number] May 03, 2015 08:41:00 [id number] Hip Unilateral 1 view R EXAMINATION: Pelvis 1 or 2 views; right hip unilateral one view HISTORY: Right hip pain FINDINGS: AP view the pelvis excluding the top of both iliac crest single view the right hip are submitted without comparison. Both hip joint spaces are normal and symmetric. There is no acute fracture. There is decrease femoral head neck offset bilaterally. IMPRESSION: 1. Bilateral femoral head asphericity Requested By: NOAH HINOJOSA M.D. Dictated By: AMADOR NAIDU MD, PHD on May 03 2015 8:49A This document has been electronically signed by: AMADOR NAIDU MD, PHD on May 03 2015 8:49A [id number] us Historical Provider MD WALL XR PROCEDURES Final R esult documented in this encounter Visit Diagnoses Diagnosis Other specified acquired deformities of left thigh Other specified acquired deformities of right thigh documented in this encounter
--- OUTSIDE RECORDS SUMMARY | 2024-05-18 13:11 | XMS_ITS | Clinical Summary ---
Author Organization [facility] Address [address] [place] [address] Care Team Providers Care Licensing Worker Name Role Phone Diana Garcias MD Primary Care Provider [phone] Allergies No known active allergies Medications tamsulosin (FLOMAX) 0.4 mg extended release capsule 01/11/2021 Act fouzia meloxicam (MOBIC) 15 mg tablet TAKE ONE TABLET BY MOUTH DAILY 05/03/2015 Active lovastatin (MEVACOR) 20 mg tablet Take 20 mg by mouth daily 12/07/2020 Active calcium carbonate-vitam in D3 600 mg (1,500 mg)-800 unit tablet,chewable Take by mouth Active glucosamine HCl 1,500 mg tablet Take by mouth Active multivitamin capsule Take 1 capsule by mouth daily Active coenzyme Q10 10 mg capsule Take 400 mg by mouth daily Active vitamin E (AQUASOL E) 400 unit capsule Take 400 Units by mouth Active ascorbic acid (vitamin C) 1,000 mg tablet Take 1,000 mg by mouth daily Active vitamin B complex capsule Take 1 capsule by mouth daily Active Active Problems Problem Noted Date Diagnosed Date Arthralgia of hip 05/02/2015 Medical History Medical History Date Comments Arthritis Elevated PSA Visual impairment Family History Medical History Relation Name Comments Arthritis Father Family history of arthritis - (Added by TW Conv) Cancer Father Family history of malignant neoplasm - (Added by TW Conv) Heart disease Father Family history of cardiac disorder - (Added by TW Conv) Hypertension Father Family history of hypertension - (Added by TW Conv) Lung disease Father Lung trouble - (Added by TW Conv) Stroke Father Family history of cerebrovascular accident (CVA) - (Added by TW Conv) Arthritis Mother Family history of arthritis - (Added by TW Conv) Heart disease Mother Family history of cardiac disorder - (Added by TW Conv) Relation Name Status Comments Father Mother Social History Tobacco Use Types Packs/Day Years Used Date Smoking Tobacco: Never Smokeless Tobacco: Never Sex and Gender Information Value Date Recorded Sex Assigned at Not on file Legal Sex Male 11:22 AM BODY RECALL INSTRUCTOR Gender Identity Male 02/20/2021 10:08 AM CDT Sexual Orientation Straight 02/20/2021 10 :08 AM CDT Obstetrics History Last Filed Vital Signs Vital Sign Reading Time Taken Comments Blood Pressure - - Pulse - - Temperature 36.7 ??C (98 ??F) 07/06/2022 1:30 PM BODY RECALL INSTRUCTOR Respiratory Rate - - Oxygen Saturation - - Inhaled Oxygen Concentration - - Weight 83.9 kg (185 lb) 01/28/2021 8:30 AM CDT Height 172.7 cm (5' 8 ) 01/28/2021 8:30 AM CDT Body Mass Index 28.13 01/28/2021 8:30 AM CDT Plan of Treatment Health Maintenance Due Date Last Done Comments Colon Cancer Screening-Colonoscopy 1955 Depression Screening 1955 Fall Risk Assessment 1955 Hepatitis C Screening 1955 Hepatitis B Screening 1975 DTaP/Tdap/Td Vaccine (2 - Td or Tdap) 03/02/2020 Zoster Vaccine (3 of 3) 04/21/2020 02/25/2020, 06/15 Abdominal Aortic Aneurysm (A AA) Screen 2022 Pneumococcal vaccine 65+ (1 of 1 - PCV) 2022 Well Visit 65+ 2022 Prostate Cancer Screening-PSA 01/28/2023 01/28/2021 Influenza Vaccine (#1) 2024 1, 01/17/2019, 01/17/2018 Procedures Procedure Name Priority Date/Time Associated Diagnosis Comments PSA DIAGNOSTIC Routine 01/28/2021 9:10 AM CDT Elevated PSA from Last 3 Months or Most Recently Relevant to Health Maintenance Results * PSA diagnostic (01/28/2021 9:10 AM CDT) PSA-Total 5.39 <=5.40 ng/mL [facility] Comment: Interpretive Data ?AGE ? SEX ?REFERENCE INTERVAL 0 minutes-150 years ?Female ?None 0 minutes-49 years ? Male ?None ? 50-59 years ? Male ?0-3.90 ? 60-69 years ? Male ?0-5.40 ? 70-79 years ? Male ?0-6.20 ? 80-150 years ?Male ?0-6.20 Current interpretive data last revised 2017. Blood 01/28/2021 9:10 AM CDT 01/28/2021 9:24 AM CDT us Deon Mead MD LAB BLOOD ORDERABLES Final Re sult [facility] Department [place] [address] from Last 3 Months or Most Recently Relevant to Health Maintenance Insurance [employer] [place] [employer] [place] Care Teams Licensing Worker Relationship Specialty Start Date End Date Diana Garcias MD [address] [place] [address] PCP - General 09/11/16
--- OUTSIDE RECORDS SUMMARY | 2024-05-18 13:11 | XMS_ITS | Referral Summary ---
Author Organization [facility] Address [address] [place] [address] Care Team Providers Care Activities Concierge Name Role Phone Diana Garcias MD Primary Care Provider Allergies No known active allergies Medications tamsulosin [...] Date Diagnosed Date Arthralgia of hip 05/02/2015 Social History Tobacco Use Types Packs/Day Years Used Date Smoking Tobacco: Never Smokeless Tobacco: Never Sex and Gender Information Value Date Recorded Sex Assigned at Not on file Legal Sex Male 11:22 AM STREETCAR CONDUCTOR Gender Identity Male 02/20/2021 10:08 AM CDT Sexual Orientation Straight 02/20/2021 10 :08 AM CDT Last Filed Vital Signs Vital Sign Reading Time Taken Comments Blood Pressure - - Pulse - - Temperature 36.7 ??C (98 ??F) 07/06/2022 1:30 PM STREETCAR CONDUCTOR Respiratory Rate - - Oxygen Saturation - - Inhaled Oxygen Concentration - - Weight 83.9 kg (185 lb) 01/28/2021 8:30 AM CDT Height 172.7 cm (5' 8 ) 01/28/2021 8:30 AM CDT Body Mass Index 28.13 01/28/2021 8:30 AM CDT Plan of Treatment Not on file Procedures Procedure Name Priority Date/Time Associated Diagnosis Comments PSA DIAGNOSTIC Routine 01/28/2021 9:10 AM CDT Elevated PSA from Last 3 Months or Most Recently Relevant to Health Maintenance Results * PSA diagnostic (01/28/2021 9:10 AM CDT) PSA-Total 5.39 <=5.40 ng/mL [facility] Comment: Interpretive Data ?AGE ? SEX ?REFERENCE [...] Mead MD LAB BLOOD ORDERABLES [facility] Organization Address City/State/ZIP Co de Phone Number [facility] Department [place] [address] from Last 3 Months or Most Recently Relevant to Health Maintenance Insurance MEDICARE SOLUTIONS [facility] MEDICARE Address: [address] [address] [place] [address] [id number] [place] [id number] [place] Care Teams Activities Concierge Relationship Specialty Start Date End Date Diana Garcias MD [address] [place] [address] PCP - General 09/11/16
--- OUTSIDE RECORDS SUMMARY | 2024-05-18 13:11 | XMS_ITS | Encounter Summary ---
Author Organization [facility] Address [address] [place] [address] Phone Care Team Providers Care Chucking Machine Set Up Operator Name Role Phone Diana Garcias MD Primary Care Provider [phone] Encounter Details Date Type Department Care Team (Late st Contact Info) Description 07/22/2020 Orders Only [facility] [place] Urology [address] [place] [address] [address] [place] [address] Kyung Conti RMA Elevated PSA (Primary Dx) Social History Tobacco Use Types Packs/Day Years Used Date Smoking Tobacco: Never Smokeless Tobacco: Never Sex and Gender Information Value Date Recorded Sex Assigned at Not on file Legal Sex Male 11:22 AM GRANTS DIRECTOR Gender Identity Male 02/20/2021 10:08 AM CDT Sexual Orientation Straight 02/20/2021 10 :08 AM CDT documented as of this encounter Plan of Treatment Not on file documented as of this encounter Visit Diagnoses Diagnosis Elevated PSA- Primary Elevated prostate specific antigen (PSA) documented in this encounter Care Teams Chucking Machine Set Up Operator Relationship Specialty Start Date End Date Diana Garcias MD [address] [place], [place] [id number] PCP - General 09/11/16 documented as of this encounter
--- OUTSIDE RECORDS SUMMARY | 2024-05-18 13:11 | XMS_ITS | Encounter Summary ---
Author Organization [facility] Address [address] [place] [address] Phone Care Team Providers Care Flower Stripper Name Role Phone Diana Garcias MD Primary Care Provider [phone] Encounter Details Date Type Department Care Team (Late st Contact Info) Description 02/11/2021 Telephone [facility] Surgery [address] [place], [place] [id number] Nerissa Berry CMA Social History Tobacco Use Types Packs/Day Years Used Date Smoking Tobacco: Never Smokeless Tobacco: Never Sex and Gender Information Value Date Recorded Sex Assigned at Not on file 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 * Telephone Encounter - Deon Mead MD - 02/11/2021 2:33 PM CDT He needs 4k to be done. Normally we draw blood in the [facility]. Please check if this can scheudled at [place] or other locations. * Telephone Encounter - Kizzy Allan LPN - 02/11/2021 10:[address] Mead, I do not see where you want more testing, am I missing something? I will be happy to order something if you need it. See patient's phone message below. Kizzy Kidd * Telephone Encounter - Nerissa Berry CMA - 02/11/2021 9:11 AM CDT Pt's called they got a message that Dr is wanting more testing done. Please advise on what andwhere they need to have done. documented in this encounter Plan of Treatment Not on file documented as of this encounter Visit Diagnoses Not on filedocumented in this encounter Care Teams Flower Stripper Relationship Specialty Start Date End Date Diana Garcias MD [address] [place], [place] [id number] PCP - General 09/11/16 documented as of this encounter
--- OUTSIDE RECORDS SUMMARY | 2024-05-18 13:11 | XMS_ITS | Encounter Summary ---
Author Organization [facility] Address [address] [place] [address] Phone Care Team Providers Care Face Cleaner Name Role Phone Diana Garcias MD Primary Care Provider [phone] Encounter Details Date Type Department Care Team (Late st Contact Info) Description 07/19/2020 Telephone [facility] - [facility] Urology [address] [facility] Advanced Medicine 11th [place] [address] [place] [address] [place] [address] [facility] [address] [place] [address] Social History Tobacco Use Types Packs/Day Years Used Date Smoking Tobacco: Never Smokeless Tobacco: Never Sex and Gender Information Value Date Recorded Sex Assigned at Not on file 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 Gender Identity Male 02/20/2021 10:08 AM CDT Sexual Orientation Straight 02/20/2021 10 :08 AM CDT documented as of this encounter Miscellaneous Notes * Telephone Encounter - Kyung Conti MA - 07/21/2020 8:11 AM CDT Pt called * Telephone Encounter - Karolina Morgan - 07/19/2020 3:24 PM CDT Pt called ,wanting mri results documented in this encounter Plan of Treatment Not on file documented as of this encounter Visit Diagnoses Not on filedocumented in this encounter Care Teams Face Cleaner Relationship Specialty Start Date End Date Diana Garcias MD [address] [place] [address] PCP - General 09/11/16 documented as of this encounter
--- OUTSIDE RECORDS SUMMARY | 2024-05-18 13:11 | XMS_ITS | Encounter Summary ---
Author Organization [facility] Address [address] [place] [address] Phone Care Team Providers Care Client Development Manager Name Role Phone Diana Garcias MD Primary Care Provider [phone] Reason for Visit * Reason Comments Elevated PSA * Consultation (Routine) - Closed Specialty Diagnoses / Procedures Referred By Rio flores Referred To Contact Urology Diagnoses Encounter for consultation Diana Garcias MD [address] [place] [address] Phone: tel: fax: [facility] (All Locations) Referral ID Status Reason Start Date Expiration Date V isits Requested Visits Authorized [id number] Closed Specialty Services Required 06/09/2020 07/09/2021 99 99 Encounter Details Date Type Department Care Team (Late st Contact Info) Description 01/28/2021 8:20 AM CDT [facility] - [facility] Urology [address] 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 male presenting for follow-up for elevated PSA. No new symptoms since the last visit. PSA not done now. Prostate MRI on 07/16/20: Volume - 73 cc. No suspicious lesions. Past Medical History: Diagnosis Date ??? Arthritis ??? Elevated PSA ??? Visual impairment History reviewed. No pertinent surgical history. Social History Tobacco Use ??? Smoking status: Never Smoker ??? Smokeless tobacco: Never Used Substance Use Topics ??? Alcohol use: Not on file Family History Problem Relation Age of Onset ??? Heart disease Mother Family history of cardiac disorder - (Added by TW Conv) ??? Arthritis Mother Family history of arthritis - (Added by TW Conv) ??? Heart [...] symptoms except HPI are negative Objective: Vitals: Ht 172.7 cm (5' 8 ) Wt 83.9 kg (185 lb) BMI 28.13 kg/m?? Lab/Radiology/Diagnostic Review: Reviewed. Plan: - PSA today - Continue Tamsulosin for BPH Deon Mead MD Faculty, Urology division, Department of surgery, [facility] ([facility]) [facility] Physician [facility] ([facility]) documented in this encounter Plan of Treatment Not on file documented as of this encounter Procedures Procedure Name Priority Date/Time Associated Diagnosis Comments POCT URINALYSIS DIPSTICK Routine 01/28/2021 8:30 AM CDT Elevated PSA MEASURE POST VOID RESIDUAL Routine 01/28/2021 Elevated PSA documented in this encounter Results * PSA diagnostic (01/28/2021 9:10 AM CDT) PSA-Total 5.39 <=5.40 ng/mL [facility] Comment: Interpretive Data ?AGE ? SEX ?REFERENCE [...] MD LAB BLOOD ORDERABLES Final Re sult [facility] Department [place] [address] * POCT urinalysis dipstick (01/28/2021 8:30 AM CDT) Glucose, ur, POC Negative Negative mg/dL Bilirubin, ur, POC Negative Negative, Small, Moderate, Large Ketones, ur, POC Negative Negative Blood, ur, POC Negative Negative pH, ur, POC 5.0 5.0 - 8.0 Protein, ur, POC Negative Negative Nitrite, ur, POC Negative Negative Leukocytes, ur, POC Negative Negative Lot Number 0 Urine 01/28/2021 8:30 AM CDT us Deon Mead MD POINT OF CARE TEST ORDERABLES Final Result * Measure post void residual (01/28/2021) Narrative Kyung Conti MA - 01/28/2021 Measurement of post-voiding residual urine and/or bladder capacity by ultrasound, non-imaging. ??PVR = 29cc us Deon Mead MD NURSING ASSESSMENTS Final Res ult documented in this encounter Visit Diagnoses Diagnosis Elevated PSA- Primary Elevated prostate specific antigen (PSA) documented in this encounter Historical Medications * This list may reflect changes made after this encounter. vitamin B complex capsule Take 1 capsule by mouth daily ascorbic acid (vitamin C) 1,000 mg tablet Take 1,000 mg by mouth daily vitamin E (AQUASOL E) 400 unit capsule Take 400 Units by mouth coenzyme Q10 10 mg capsule Take 400 mg by mouth daily multivitamin capsule Take 1 capsule by mouth daily glucosamine HCl 1,500 mg tablet Take by mouth calcium carbonate-vitamin D3 600 mg (1,500 mg)-800 unit tablet,chewable Take by mouth lovastatin (MEVACOR) 20 mg tablet Take 20 mg by mouth daily 12/07/2020 meloxicam (MOBIC) 15 mg tablet TAKE ONE TABLET BY MOUTH DAILY 05/03/2015 tamsulosin (FLOMAX) 0.4 mg extended release capsule 01/11/2021 added in this encounter Care Teams Client Development Manager Relationship Specialty Start Date End Date Diana Garcias MD [address] [place] [id number] PCP - General 09/11/16 documented as of this encounter
--- OUTSIDE RECORDS SUMMARY | 2024-05-18 13:11 | XMS_ITS | Encounter Summary ---
Author Organization [facility] [employer] [facility] Address [address] [place] [address] Phone Care Team Providers Care Towel Weaver Name Role Phone Diana Garcias MD Primary Care Provider [phone] Reason for Referral * Diagnostic Imaging (Routine) - Closed Specialty Diagnoses / Procedures Referred By Rio flores Referred To Contact Radiology Diagnoses Elevated PSA Procedures MRI Pelvis Prostate W WO Contrast Deon Mead MD Phone: tel: fax: [address] [address] Referral ID Status Reason Start Date Expiration Date Visits Re quested Visits Authorized [id number] Closed 06/30/2020 07/29/2020 1 1 E FITTER Encounter Details Date Type Department Care Team (Late st Contact Info) Description 06/28/2020 Orders Only [facility] - [facility] [place] Urology [address] [facility] [address] [place] [phone] [place] [address] [address] [facility] [address] [place] [address] Elevated PSA (Primary Dx) Social History Tobacco Use Types Packs/Day Years Used Date Smoking Tobacco: Never Smokeless Tobacco: Never Sex and Gender Information Value Date Recorded Sex Assigned at Not on file Legal Sex Male 11:22 AM STOVE FITTER Gender Identity Male 02/20/2021 10:08 AM CDT Sexual Orientation Straight 02/20/2021 10 :08 AM CDT documented as of this encounter Plan of Treatment Not on file documented as of this encounter Results * MRI Pelvis Prostate W WO Contrast (07/16/2020 9:09 AM STOVE FITTER) Anatomical Region Laterality Modality Body N/A Magnetic Resonan ce 07/16/2020 9:50 AM STOVE FITTER Impressions 07/16/2020 4:12 PM STOVE FITTER There are no suspicious lesions in the prostate (PI-RADS 3 or greater). Dictated by: Lalit Duron M.D. The radiology attending physician has personally reviewed this study, and had reviewed and/or edited this written report and agrees with it. Electronically signed by: Westley Damico M.D. Narrative 07/16/2020 4:12 PM STOVE FITTER EXAMINATION: MAGNETIC RESONANCE IMAGING OF THE PELVIS [...] it. Electronically signed by: Westley Damico M.D. Deon Mead MD IM MRI PROCEDURES Final Resu lt documented in this encounter Visit Diagnoses Diagnosis Elevated PSA- Primary Elevated prostate specific antigen (PSA) Elevated PSA Elevated prostate specific antigen (PSA) documented in this encounter Care Teams Towel Weaver Relationship Specialty Start Date End Date Diana Garcias MD [address] [place] [address] PCP - General 09/11/16 documented as of this encounter
--- OUTSIDE RECORDS SUMMARY | 2024-05-18 13:11 | XMS_ITS | Encounter Summary ---
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
--- OUTSIDE RECORDS SUMMARY | 2024-05-18 13:11 | XMS_ITS | Encounter Summary ---
Author Organization [facility] [employer] [facility] Address [address] [place] [address] Phone Care Team Providers Care Coal Trammer Name Role Phone Diana Garcias MD Primary Care Provider [phone] Reason for Visit * Reason Comments Return Patient Encounter Details Date Type Department Care Team (Late st Contact Info) Description 02/21/2021 2:00 PM CDT Office Visit [facility] [place] Urology [address] [place] [address] [address] [place] [address] Elevated PSA (Primary Dx) Social History Tobacco Use Types Packs/Day Years Used Date Smoking Tobacco: Never Smokeless Tobacco: Never Sex and Gender Information Value Date Recorded Sex Assigned at Not on file Legal Sex Male 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 Blood drawn from right arm. Patient tolerated the procedure well. Supervising Physician: Dr. [place] Maya CMA III documented in this encounter Plan of Treatment Not on file documented as of this encounter Visit Diagnoses Diagnosis Elevated PSA- Primary Elevated prostate specific antigen (PSA) documented in this encounter Care Teams Coal Trammer Relationship Specialty Start Date End Date Diana Garcias MD [address] [place] [address] PCP - General 09/11/16 documented as of this encounter
--- OUTSIDE RECORDS SUMMARY | 2024-05-18 13:11 | XMS_ITS | Encounter Summary ---
Author Organization [facility] Healthcare Address [address] [place] [address] Care Team Providers Care Head Waitress Name Role Phone Diana Garcias MD Primary Care Provider + [phone] Encounter Details Date Type Department Care Team (Late st Contact Info) Description 01/28/2021 9:10 AM CDT Lab [facility] Advanced Medicine [facility] Advanced Medicine ([facility]) [address] [place] [phone] [place] [address] 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 Gender Identity Male 02/20/2021 10:08 AM CDT Sexual Orientation Straight 02/20/2021 10 :08 AM CDT documented as of this encounter Discharge Disposition Disposition Code Departure Means Destination Discharge to home or self care documented in this encounter Plan of Treatment Not on file documented as of this encounter Procedures Procedure Name Priority Date/Time Associated Diagnosis Comments PSA DIAGNOSTIC Routine 01/28/2021 9:10 AM CDT Elevated PSA documented in this encounter Results [...] LAB BLOOD ORDERABLES Final Re sult [facility] [place] [address] documented in this encounter Visit Diagnoses Diagnosis Elevated PSA Elevated prostate specific antigen (PSA) documented in this encounter Care Teams Head Waitress Relationship Specialty Start Date End Date Diana Garcias MD [address] [place] [address] PCP - General 09/11/16 documented as of this encounter
--- OUTSIDE RECORDS SUMMARY | 2024-05-18 13:11 | XMS_ITS | Encounter Summary ---
Author Organization [facility] Address [address] [place] [address] Phone Care Team Providers Care Horse Stud Manager Name Role Phone Diana Garcias MD Primary Care Provider [phone] Reason for Visit * Reason Comments Elevated PSA * Consultation (Routine) - Closed Specialty Diagnoses / Procedures Referred By Contahmet t Referred To Contact Urology Diagnoses Elevated PSA Diana Garcias MD [address] [place] [address] Phone: tel: fax: [facility] (All Locations) Referral ID Status Reason Start Date Expiration Date V isits Requested Visits Authorized [id number] Closed Specialty Services Required 06/24/2022 07/24/2023 99 99 Encounter Details Date Type Department Care Team (Late st Contact Info) Description 07/06/2022 1:20 PM INFANTRY OPERATIONS SPECIALIST Office Visit [facility]) - [facility] Urology [address] [facility] [address] [place] [address] [place] [address] [facility] [address] [place] [address] Elevated PSA (Primary Dx) Social History Tobacco Use Types Packs/Day Years Used Date Smoking Tobacco: Never Smokeless Tobacco: Never Sex and Gender Information Value Date Recorded Sex Assigned at Not on file Legal Sex Male 11:22 AM INFANTRY OPERATIONS SPECIALIST Gender Identity Male 02/20/2021 10:08 AM CDT Sexual Orientation Straight 02/20/2021 10 :08 AM CDT documented as of this encounter Last Filed Vital Signs Vital Sign Reading Time Taken Comments Blood Pressure - - Pulse - - Temperature 36.7 ??C (98 ??F) 07/06/2022 1:30 PM INFANTRY OPERATIONS SPECIALIST Respiratory Rate - - Oxygen Saturation - - Inhaled Oxygen Concentration - - Weight - - Height - - Body Mass Index - - documented in this encounter Progress Notes * Deon Mead MD - 07/06/2022 1:20 PM CST Follow-up note Velasquez Murphy is a 67 y.o. male presenting for follow-up for elevated PSA. No new symptoms since the last visit. Last MRI on 07/16/20: 72 cc prostate, no suspicious lesions. Component Latest Ref Rng & Units 01/28/2021 PSA <=5.40 ng/mL 5.39 Informed is within the expected range for his prostate volume. Patient was Reassured. Past Medical History: Diagnosis Date Arthritis Elevated PSA Visual impairment History reviewed. No pertinent surgical history. Social History Tobacco Use Smoking status: Never Smokeless tobacco: Never Substance and Sexual Activity Drug use: None Sexual activity: None Alcohol Use: Not on file Family History Problem Relation Age of Onset Heart disease Mother Family history of cardiac disorder - (Added by TW Conv) Arthritis Mother Family history of arthritis - (Added by TW Conv) Heart disease Father Family history of cardiac disorder - (Added by TW Conv) Arthritis Father Family history of arthritis - (Added by TW Conv) Hypertension Father Family history of hypertension - (Added by TW Conv) Stroke Father Family history of cerebrovascular accident (CVA) - (Added by TW Conv) Cancer Father Family history of malignant neoplasm - (Added by TW Conv) Lung disease Father Lung trouble - (Added by TW Conv) (Not in a hospital admission) No Known Allergies Review of Systems: All other symptoms except HPI are negative Objective: Vitals: Temp 36.7 ??C (98 ??F) Lab/Radiology/Diagnostic Review: Reviewed. Plan: - PRN Deon Mead MD Faculty, Urology division, Department of surgery, [facility] ([facility]) [facility]ician at [place] ([facility]) NTRY OPERATIONS SPECIALIST documented in this encounter Plan of Treatment Not on file documented as of this encounter Procedures Procedure Name Priority Date/Time Associated Diagnosis Comments POCT URINALYSIS DIPSTICK Routine 07/06/2022 1:43 PM INFANTRY OPERATIONS SPECIALIST Elevated PSA documented in this encounter Results * POCT urinalysis dipstick (07/06/2022 1:43 PM INFANTRY OPERATIONS SPECIALIST) Glucose, ur, POC Negative Negative MG/DL Ketones, ur, POC Negative Negative Blood, ur, POC Negative Negative pH, ur, POC 6.0 5.0 - 8.0 Protein, ur, POC Negative Negative Nitrite, ur, POC Negative Negative Leukocytes, ur, POC Negative Negative Lot Number 0 Urine 07/06/2022 1:43 PM INFANTRY OPERATIONS SPECIALIST us Deon Mead MD POINT OF CARE TEST ORDERABLES Final Result documented in this encounter Visit Diagnoses Diagnosis Elevated PSA- Primary Elevated prostate specific antigen (PSA) documented in this encounter Orders Outpatient Referral Count Last Ordered Date Fir st Ordered Date AMB REFERRAL TO UROLOGY 1 07/06/2022 documented in this encounter Care Teams Horse Stud Manager Relationship Specialty Start Date End Date Diana Garcias MD [address] [place] [address] PCP - General 09/11/16 documented as of this encounter
== END 2024-05-13 12:30 | disposition home or self-care (01) ==
LOC: ANHSURGERY 05:51 → ANH3MEDSUR 13:06
PROVIDERS: PCP Internal Medicine; Visit Provider Orthopaedic Surgery
PROC: (CPT 27447; principal; 2024-05-12 07:30)
DX: M17.0 Bilateral primary osteoarthritis of knee (principal); E78.5 Hyperlipidemia, unspecified; N40.0 Benign prostatic hyperplasia without lower urinary tract symptoms; Z98.890 Other specified postprocedural states; Z82.49 Family history of ischemic heart disease and other diseases of the circulatory system
CPT/HCPCS: 20610; 27447; 36415; 73560; 80048; 85025; 86850; 86900; 86901; 97110; 97116; 97161; 97165; 97530; 97535; A9270; C1713; C1776; J0171; J0690; J1010; J1100; J1171; J1885; J2003; J2250; J2270; J2371; J2405; J2704; J2795; J3010; J3370; J7120

== ENCOUNTER 2024-05-15 08:00 | Outpatient (RCR) | payer MEDICARE, SELFPAY ==
--- NOTE | 2024-05-13 07:42 | WPDANESPN ---
Anes - Prog Note Post-Op Date/Time: 05/13/24 07:42 Cardiovascular status: normal Respiratory status: normal Airway patency: baseline Mental status: baseline Post-Op hydration status: normal Pain Score (VAS): 1 Post-procedural complaints: none Patient Feedback: Patient satisfied with anesthetic care.
--- NOTE | 2024-05-14 09:05 | OPREHPOC ---
Outpatient Therapy Plan of Care This is a Multidisciplinary Plan of Care that may contain components documented by all disciplines (PT, OT, and ST.) PT Problem 1 PT Problem #1 Knowledge Deficit PT Goal 1 Goal / Goal Update 1. independent and compliant with HEP Target Visit 6 PT Problem 2 PT Problem #2 Pain PT Goal 1 Goal / Goal Update 1. 2/10 or less pain at worst in the L knee. Target Visit 12 PT Problem 3 PT Problem #3 Impaired Range of Motion PT Goal 1 Goal / Goal Update 1. achieve active L knee rom to 0-120 degrees or better Target Visit 12 PT Problem 4 PT Problem #4 Impaired Strength PT Goal 1 Goal / Goal Update 1. 4+/5 L hip flex without extension lag of the L knee 2. 5/5 L knee strength Target Visit 12 PT Problem 5 PT Problem #5 Impaired Functional Mobility PT Goal 1 Goal / Goal Update 1. patient to DC use of walker for ambulation, and transition to a cane Target Visit 6 PT Goal 2 Goal / Goal Update 1. patient to ambulate with normal gait mechanics and no AD 2. reciprocal mechanics up and down steps with 1 hand rail hold 3. LEFS to display 35% or less functional deficits Target Visit 12
--- NOTE | 2024-05-14 09:05 | PTOPEVAL1 ---
Assessment and note entered by JT File, PT Evaluation Information Assessment Status Evaluation Diagnosis L TKA ICD-10 Condition Codes (PT) Pain in left knee M25.562,Encounter for other orthopedic aftercare Z47.89,Aftercare following joint replacement surgery Z47.1 Onset 05/12/24 Subjective Information patient reports he had been having L knee issues for about a year or more. he reports he was using no AD to get around prior to surgery, but was limping quite a bit. he reports the R knee is also bad now from favoring the R knee. he had L TKA on 05/12/24. he has been trying to do his HEP from the surgeon at home since surgery, but reports the bending under the chair is Really tough. he would like to get back to walking without an AD, and being able to care for his grandchildren. Reported Pain Level Pain Score 2: Self Report Assessment PT Clinical Summary mr. morel is a 69 yo man who presents to skilled PT services for evaluation and treatment s/p L TKA . he presents today with pain, swelling, decreased rom, decreased strength, and abnormal gait mechanics. continued skilled PT is indicated to improve patients objective/functional deficits to return to his prior level functional activity performance/quality of life. Plan of Care Interventions Electrical Stimulation,Gait Training,Hot Pack/Cold Pack,Intermittent Compression Pump,Manual Therapy ,Neuro Re-education,Patient/Caregiver Education, Therapeutic Activities,Therapeutic Exercise PT Services Indicated Yes Treatment Frequency and 3x weekly for 12 visits Duration These treatments will address the objective and functional deficits as defined above. The patient will be advanced safely and appropriately in order for the patient to progress towards his/her prior level of function. Additional exercises will be introduced and as well as a comprehensive home exercise program upon discharge, if needed, ?to ensure carryover of functional gains achieved in the clinic. This treatment plan has been reviewed and agreement upon by the patient.
--- NOTE | 2024-06-04 08:49 | OPREHPOC ---
Outpatient Therapy Plan of Care This is a Multidisciplinary Plan of Care that may contain components documented by all disciplines (PT, OT, and ST.) PT Problem 1 PT Problem #1 Knowledge Deficit PT Goal 1 Goal / Goal Update 1. independent and compliant with HEP Target Visit 6 Progress Met PT Goal 2 Goal / Goal Update Continue to progress Target Visit 20 PT Problem 2 PT Problem #2 Pain PT Goal 1 Goal / Goal Update 1. 2/10 or less pain at worst in the L knee. Target Visit 12 Progress Not Met PT Goal 2 Goal / Goal Update continue Target Visit 20 PT Problem 3 PT Problem #3 Impaired Range of Motion PT Goal 1 Goal / Goal Update 1. achieve active L knee rom to 0-120 degrees or better Target Visit 12 Progress Not Met PT Goal 2 Goal / Goal Update continue Target Visit 20 PT Problem 4 PT Problem #4 Impaired Strength PT Goal 1 Goal / Goal Update 1. 4+/5 L hip flex without extension lag of the L knee 2. 5/5 L knee strength Target Visit 12 Progress Not Met PT Goal 2 Goal / Goal Update continue Target Visit 20 PT Problem 5 PT Problem #5 Impaired Functional Mobility PT Goal 1 Goal / Goal Update 1. patient to DC use of walker for ambulation, and transition to a cane Target Visit 6 Progress Met PT Goal 2 Goal / Goal Update 1. patient to ambulate with normal gait mechanics and no AD -not met 2. reciprocal mechanics up and down steps with 1 hand rail hold -not met 3. LEFS to display 35% or less functional deficits -not met continue all Target Visit 20
--- NOTE | 2024-06-04 08:49 | PTOPPROG ---
Assessment and note entered by Rosalba Valdivia, PT Evaluation Information Assessment Status Progress Diagnosis L TKA ICD-10 Condition Codes (PT) Pain in left knee M25.562,Encounter for other orthopedic aftercare Z47.89,Aftercare following joint replacement surgery Z47.1 Onset 05/12/24 Subjective Information Velasquez Murphy reports his left knee is stiff but overall his pain is mild. He reports he is walking without his cane around the house but still uses it out and about. He continues to take stairs one at a time as well. 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 He will see Dr. Ashraf for a follow up on 06/11/24. Assessment PT Clinical Summary Velasquez Murphy has completed 10 skilled PT visits following a left TKA performed on 05/12/24. He is reporting ongoing stiffness and mild pain in the left knee. He is using a cane for ambulation outside the home and continues to take stairs one at a time. 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 He objectively demonstrates improvements in left knee active and passive ROM as well as steady improvements in strength. He is progressing towards meeting goals but still lacks full left knee ROM, has decreased strength, limitations in balance, altered gait, and difficulty navigating stairs. He will continue to benefit from skilled PT to further address ongoing physical and functional limitations. Plan of Care Interventions Neuro Re-education,Patient/Caregiver Education, Therapeutic Activities,Therapeutic Exercise PT Services Indicated Yes Treatment Frequency and 2 times per week for 10 visits Duration These treatments will address the objective and functional deficits as defined above. The patient will be advanced safely and appropriately in order for the patient to progress towards his/her prior level of function. Additional exercises will be introduced and as well as a comprehensive home exercise program upon discharge, if needed, ?to ensure carryover of functional gains achieved in the clinic. This treatment plan has been reviewed and agreement upon by the patient.
--- NOTE | 2024-07-01 09:02 | OPREHPOC ---
Outpatient Therapy Plan of Care This is a Multidisciplinary Plan of Care that may contain components documented by all disciplines (PT, OT, and ST.) PT Problem 1 PT Problem #1 Knowledge Deficit PT Goal 1 Goal / Goal Update 1. independent and compliant with HEP Target Visit 6 Progress Met PT Goal 2 Goal / Goal Update Continue to progress Target Visit 20 Progress Met PT Problem 2 PT Problem #2 Pain PT Goal 1 Goal / Goal Update 1. 2/10 or less pain at worst in the L knee. Target Visit 12 Progress Partially Met PT Goal 2 Goal / Goal Update continue Target Visit 20 Progress Partially Met PT Problem 3 PT Problem #3 Impaired Range of Motion PT Goal 1 Goal / Goal Update 1. achieve active L knee rom to 0-120 degrees or better Target Visit 12 Progress Met PT Goal 2 Goal / Goal Update continue Target Visit 20 Progress Met PT Problem 4 PT Problem #4 Impaired Strength PT Goal 1 Goal / Goal Update 1. 4+/5 L hip flex without extension lag of the L knee 2. 5/5 L knee strength Target Visit 12 Progress Met PT Goal 2 Goal / Goal Update continue Target Visit 20 Progress Met PT Problem 5 PT Problem #5 Impaired Functional Mobility PT Goal 1 Goal / Goal Update 1. patient to DC use of walker for ambulation, and transition to a cane Target Visit 6 Progress Met PT Goal 2 Goal / Goal Update 1. patient to ambulate with normal gait mechanics and no AD 2. reciprocal mechanics up and down steps with 1 hand rail hold 3. LEFS to display 35% or less functional deficits Target Visit 20 Progress Met
--- NOTE | 2024-07-01 09:03 | PTOPDC ---
Assessment and note entered by Rosalba Valdivia, PT Evaluation Information Assessment Status Discharge Diagnosis L TKA ICD-10 Condition Codes (PT) Pain in left knee M25.562,Encounter for other orthopedic aftercare Z47.89,Aftercare following joint replacement surgery Z47.1 Onset 05/12/24 Subjective Information Velasquez Murphy reports his left knee is doing well. He has recently began walking without his cane and has been going up and down stairs at home with one hand rail and one foot on each step. He has been trying to walk around the block of his home 2 times in a row and has walked 5 blocks at one time as well. He will see the surgeon again on and will not return to work until at least the day after he sees his doctor. He notes he is still limited with how long he can sit, drive, and stand. Reported Pain Level Pain Score 0: Self Report Assessment PT Clinical Summary Velasquez Murphy has completed 18 skilled PT visits following a left total knee arthroplasty performed on 05/12/24. He is reporting less pain and improved mobility from his knee noting he can walk up to 5 blocks without a cane and go up and down stairs reciprocally with a hand rail. He does feel limited with prolonged standing, sitting, and driving. He demonstrates good left knee AROM achieving 0-120 degrees today, good strength in left knee and hip, and improved gait and endurance . He has met all PT goals and will be discharged to an independent [facility]. Plan of Care PT Services Indicated No
== END 2024-07-01 10:27 | disposition home or self-care (01) ==
LOC: CHSPT 08:00
PROVIDERS: Visit Provider Orthopaedic Surgery
DX: M17.0 Bilateral primary osteoarthritis of knee (principal); Z96.652 Presence of left artificial knee joint
CPT/HCPCS: 97110; 97112; 97150; 97161; 97530; 97750

== ENCOUNTER 2024-09-12 09:11 | Outpatient (CLI) | payer MEDICARE, SELFPAY ==
--- OUTSIDE RECORDS SUMMARY | 2024-09-12 09:19 | XMS_ITS | Encounter Summary ---
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
--- OUTSIDE RECORDS SUMMARY | 2024-09-12 09:19 | XMS_ITS | Referral Summary ---
Author Organization [facility] al Address [address] [place] [address] Care Team Providers Care Plant And Equipment Worker Name Role Phone Diana Garcias MD [...] on file Legal Sex Male 11:22 AM COLLEGE DEAN Gender Identity Male 02/20/2021 10:08 AM CDT Sexual Orientation Straight 02/20/2021 10 :08 AM CDT Last Filed Vital Signs Vital Sign Reading Time Taken Comments Blood Pressure - - Pulse - - Temperature 36.7 C (98 F) 07/06/2022 1:30 PM COLLEGE DEAN Respiratory Rate - - Oxygen Saturation - [...] AM CDT) PSA-Total 5.39 <=5.40 ng/mL [facility] Comment: Interpretive Data AGE SEX REFERENCE INTERVAL 0 minutes-150 years Female None 0 minutes-49 years Male None 50-59 years Male 0-3.90 60-69 years Male 0-5.40 70-79 years Male 0-6.20 80-150 years Male 0-6.20 Current interpretive data last revised 2017. Blood 01/28/2021 9:10 AM CDT 01/28/2021 9:24 AM CDT us Deon Mead MD LAB BLOOD ORDERABLES Final Re sult [facility] One [facility] [place] [address] from Last 3 Months or Most Recently Relevant to Health Maintenance Insurance [facility] MEDICARE ADVANTAGE BLUE ACCESS [place] BLUE ACCESS [place] Care Teams Plant And Equipment Worker Relationship Specialty Start Date End Date Diana Garcias MD [address] [place] [address] PCP - General 09/11/16
--- OUTSIDE RECORDS SUMMARY | 2024-09-12 09:19 | XMS_ITS | Clinical Summary ---
Author Organization [facility] Address [address] [place] [address] Care Team Providers Care Event Marketing Specialist Name Role Phone Diana Garcias MD Primary Care Provider +[phone] Allergies No known active allergies Medications tamsulosin [...] on file Legal Sex Male 11:22 AM COMMUNITY RELATIONS REP Gender Identity Male 02/20/2021 10:08 AM CDT Sexual Orientation Straight 02/20/2021 10 :08 AM CDT Obstetrics History Last Filed Vital Signs Vital Sign Reading Time Taken Comments Blood Pressure - - Pulse - - Temperature 36.7 C (98 F) 07/06/2022 1:30 PM COMMUNITY RELATIONS REP Respiratory Rate - - Oxygen Saturation - [...] C Screening 1957 Hepatitis B Screening 1975 Pneumococcal vaccine 65+ (1 of 1 - PCV) 2007 DTaP/Tdap/Td Vaccine (2 - Td or Tdap) 03/02/2020 Zoster Vaccine (3 of 3) 04/21/2020 02/25/2020, 06/15 Abdominal Aortic Aneurysm (A AA) Screen 2022 Well Visit 65+ 2022 Prostate Cancer Screening-PSA 01/28/2023 01/28/2021 Influenza Vaccine (#1) 2024 1, 01/17/2019, 01/17/2018 Procedures Procedure Name Priority Date/Time Associated Diagnosis Comments PSA DIAGNOSTIC Routine 01/28/2021 9:10 AM CDT Elevated PSA from Last 3 Months or Most Recently Relevant to Health Maintenance Results * PSA diagnostic (01/28/2021 9:10 AM CDT) PSA-Total 5.39 <=5.40 ng/mL [facility] Comment: Interpretive Data AGE SEX REFERENCE INTERVAL 0 minutes-150 years Female None 0 minutes-49 years Male None 50-59 years Male 0-3.90 60-69 years Male 0-5.40 70-79 years Male 0-6.20 80-150 years Male 0-6.20 Current interpretive data last revised 2017. Blood 01/28/2021 9:10 AM CDT 01/28/2021 9:24 AM CDT us Deon Mead MD LAB BLOOD ORDERABLES Final Re sult [facility] One [facility] Department [place] [address] from Last 3 Months or Most Recently Relevant to Health Maintenance Insurance [employer] [place] [address] [facility] Care Teams Event Marketing Specialist Relationship Specialty Start Date End Date Diana Garcias MD [address] [place] [address] PCP - General 09/11/16
[2024-09-12 09:42] LABS: Basophils Absolute Auto 0.1 K/mm3 (0.0-0.1); Basophils Percent Auto 1.1 % (0.2-1.2); Eosinophils Absolute Auto 0.2 K/mm3 (0-0.3); Eosinophils Percent Auto 3.7 % (0-4.4); Hematocrit 45.1 % (42.0-52.0); Hemoglobin 14.8 g/dL (14.0-18.0); Immature Granulocyte Absolute 0.03 K/mm3 (0.00-0.031); Immature Granulocyte Percent A 0.5 % (0-0.5); Lymphocytes Absolute Auto 1.74 K/mm3 (0.9-3.2); Lymphocytes Percent Auto 30.5 % (18.3-44.2); Mean Corpuscular HGB Conc 32.8 g/dl (32-36); Mean Corpuscular Hemoglobin 31.5 pg (26-34); Mean Platelet Volume 9.3 fl (7.4-10.4); Monocytes Absolute Auto 0.6 K/mm3 (0.1-0.6); Monocytes Percent Auto 11.1 % (2.6-8.5); Neutrophils Percent Auto 53.1 % (45.5-73.1); Platelet Count Result 212 k/mm3 (150-375); White Blood Count 5.7 K/mm3 (4.5-10.0)
[2024-09-12 09:56] LABS: Albumin Level 4.6 g/dL (3.5-5.1); Anion Gap 7 mmol/L (4-12); Blood Urea Nitrogen 22 mg/dL (9-20); Calcium 9.4 mg/dL (8.4-10.2); Carbon Dioxide 29 mmol/L (22-30); Chloride 106 mmol/L (98-107); Estimated Glomerular Filt Rate 59; Glucose 98 mg/dL (65-110); Potassium 5.1 mmol/L (3.4-5.0); Sodium 142 mmol/L (137-145)
[2024-09-12 10:21] LABS: Hemoglobin A1C 5.7 % (<5.7)
[2024-09-12 10:22] LABS: Urine Cotinine NEGATIVE
== END 2024-09-12 09:12 | disposition home or self-care (01) ==
LOC: ANHSURGERY 09:17
PROVIDERS: PCP Internal Medicine; Visit Provider Orthopaedic Surgery
DX: Z01.818 Encounter for other preprocedural examination (principal); M17.11 Unilateral primary osteoarthritis, right knee
CPT/HCPCS: 80048; 80307; 82040; 83036; 85025; 86850; 86900; 86901; 87081

== ENCOUNTER 2024-09-25 02:39 | Day surgery (SDC) | payer MEDICARE, SELFPAY ==
[2024-09-10 13:03] VITALS: BMI 30.2
--- NOTE | 2024-09-10 13:13 | PC.NURSE ---
Report to the Outpatient Waiting Room, entrance under the green pavilion located off [facility], at time __06:00am on date ___09/25/24____. Planned Procedure Time: ___07:30am .? Time changes happen often and if your time is changed the preop area will call you the afternoon before. - You and your visitor will be asked to self-screen and do not enter if you have any COVID symptoms. Please call surgeon if you need to reschedule. - A mask is optional within the hospital at this time. Patients may have clear liquids (water, carbonated beverages, clear teas, apple juice) until 3 hours prior to surgery with a maximum of 20 ounces. - No food from midnight until time of surgery and no smoking, or chewing tobacco (or any form of nicotine). No chewing gum, candy or mints. (04:30am) Take only the following medications with a SIP of water on the morning of surgery: __Tylenol if needed DO NOT STOP ANY OF YOUR OTHER PRESCRIPTION MEDICATIONS PRIOR TO SURGERY EXCEPT THE FOLLOWING Hold all vitamins and supplements for 3 days per anesthesiologist.Date to take last dose is 09/21/24 Medications to discontinue per physician None Date to take last dose None Please no make-up, nail colombian, hairspray, perfume, deodorant, or body powder the day of surgery.? No jewelry (including any body piercings) or valuables the day of surgery, leave them at home.? Please take a shower or bath the night before, or the morning of, surgery with an antibacterial soap.? Wear comfortable, loose fitting clothing.? Bring Overnight bag , Cell phone cell sales office assistant - Jewelry must be removed prior to entering the operating room.? Rings and piercings that are not removed may be cut off. - The hospital will not accept responsibility for valuables.? - Please leave all valuables, including medications, at home the day of surgery. If you are going home after surgery, a licensed haul driver must drive you home.? - NO public transportation without another adult if you receive anesthesia. - We recommend that an adult stay with you for 24 hours following discharge. - We also recommend that you do not drive, make important decision, drink alcoholic beverages, or take any drugs that were not prescribed by your health care provider for at least 24 hours after your discharge time. Follow any additional instructions given to you from your surgeon. Telephone instructions given to __patient & wife and asked if any additional questions and then verbalized understanding. Patient advised to call surgeon office or pre surgery nurse liaison [phone] if any additional questions.
--- NOTE | 2024-09-24 07:42 | PM.IMHP ---
H&P: HPI History of Present Illness Date/Time: 09/24/24 07:42 Chief Complaint: Right knee DJD Narrative: 69-year-old male presents today for a right total knee arthroplasty. He underwent left total knee arthroplasty in May of this year. He did very well with his recovery and is happy with his results. Patient has severe medial compartment osteoarthritis in the right knee. He has continued symptoms pain and disability from it. He he feels this point he has recovered well from his left total knee and ready proceed with the right. Review of Systems Review of Systems: All systems reviewed & are unremarkable except as noted in HPI and below PMFSH Past Medical History Medical History Enlarged prostate Colon cancer screening Surgical History Surgical History History of left knee replacement History of hernia repair History of heart surgery Family History Family History Sibling Family history of thyroid disease Family history of arthritis Father Hypertension Cerebrovascular accident Mother Family history of arthritis Acute myocardial infarction Social History Social History (Updated 07/21/24 @ 14:43 by Mariluz Cortes CMA) Smoking status: Never smoker Additional smoking assessment comments: denies any nicotine Alcohol intake: current Drinks per week: 4 Substance use: never Substance use type: does not use Do You Feel Safe in your Home?: Yes Lack of Transportation: No Lack of Food: Never True Current Housing: I Have Housing Concerned About Future Housing: No Difficulty Paying Gas/Electric Bills: No Difficulty Paying for Meds: No Currently Unemployed: No Education: Associate Degree Difficulty w/ Childcare or Family Care: No Living arrangements: with family Additional living arrangements comments: Spiritual care concerns: No Meds Home Medications and Allergies Home Medications ?Medication ?Instructions ?Recorded ?Confirmed ?Type lovastatin 20 mg tablet 20 mg PO DAILY 07/11/21 09/10/24 History multivitamin with minerals-folic 1 tablet PO DAILY 07/11/21 09/10/24 History acid 0.4 mg tablet tamsulosin 0.4 mg capsule 0.4 mg PO DAILY 07/11/21 09/10/24 History calcium 600 mg (as 1 tablet PO DAILY 02/15/24 09/10/24 History carbonate)-vitamin D3 20 mcg (800 unit) tablet vitamin B complex 1 cap PO DAILY 02/15/24 09/10/24 History acetaminophen 500 mg tablet 1,000 mg (2 x 500 mg) PO Q6H #100 05/13/24 09/10/24 Rx tabs peg [id number] 1 1 drp EACH EYE Q2H PRN Dry Eye(S) 05/13/24 09/10/24 Rx %-0.2 %-0.2 % eye drops #30 mL (Artificial Tears ([id number])) celecoxib 200 mg capsule (Celebrex) 200 mg PO DAILY #30 caps 07/21/24 09/10/24 Rx cephalexin 500 mg capsule 500 mg PO ONCE #4 caps 07/23/24 09/10/24 Rx Allergies Allergy/AdvReac Type Severity Reaction Status Date / Time pollen extracts Allergy Intermediate Congested Verified 09/10/24 12:59 walnut Allergy Unknown Verified 09/10/24 12:59 Exam Narrative: 69-year-old male alert pleasant he is 5 ft 8 and 203 lb BMI is 30.9. He has moderately large effusion in the right knee. Range of motion is from 0-140 degrees. Mild medial pseudolaxity to valgus stress. Mild medial joint line tenderness. Hip range of motion is full without discomfort, negative Stinchfield maneuver. He has normal quadriceps strength. 2+ dorsalis pedis pulse palpable. Normal sensation to the right lower extremity there is no edema in either lower extremity. Resp: Auscultation: clear to auscultation bilaterally Cardio: Rate: regular rate Rhythm: regular rhythm Assessment and Plan Assessment and plan (1) Osteoarthritis of right knee: Code(s): M17.11 - Unilateral primary osteoarthritis, right knee Status: Acute Assessment and Plan: 69-year-old male who has severe medial compartment osteoarthritis the right knee with continued symptoms. Again at this point he feels he has recovered well from his left total knee and is ready proceed with the right. Surgical procedures well as the risks and complications were reviewed all questions were answered and we will proceed. Patient's nasal swab was negative. Hemoglobin 14.8 platelets are 212. Chem panel creatinine is elevated at 1.25 with a GFR 59. Potassium also slightly elevated at 5.1 patient can continue his Celebrex to the time surgery.
[2024-09-25] VITALS (14 sets, daily range): BP systolic 97–144; BP diastolic 41–81; PULSE 62–74; RESP 12–20; TEMP 35.9–36.7; O2SAT 97–100
--- NOTE | ~2024-09-25 | XR_ITS ---
EXAMINATION: [id number] DATE: 09/25/2024 11:22 INDICATION: Postoperative evaluation following right total knee arthroplasty. TECHNIQUE: Anteroposterior and lateral views of the right knee were obtained. COMPARISON: None. FINDINGS: Right total knee arthroplasty without patellar resurfacing appears well seated and in near anatomic a lignment. No fractures identified. Expected postoperative subcutaneous and intra-articular gas. IMPRESSION: 1. Right total knee arthroplasty, negative for postoperative purposes. Reviewed, dictated and finalized at location A.
--- OUTSIDE RECORDS SUMMARY | 2024-09-25 02:41 | XMS_ITS | Encounter Summary ---
Author Organization [facility] Healthcare Address [address] [place] [address] Care Team Providers Care Ring Attacher Name Role Phone Diana Garcias MD Primary Care Provider + [phone] Encounter Details Date Type Department Care Team (Late st Contact Info) Description 07/15/2020 Telephone [facility] Imaging [address] [place] [address] Rosalba Dhaliwal, RT Social History Tobacco Use Types Packs/Day Years Used Date Smoking Tobacco: Never Smokeless Tobacco: Never Sex and Gender Information Value Date Recorded Sex Assigned at Not on file Legal Sex Male 11:22 AM SHELTERED WORKSHOP EXECUTIVE DIRECTOR Gender Identity Male 02/20/2021 10:08 AM CDT Sexual Orientation Straight 02/20/2021 10 :08 AM CDT documented as of this encounter Plan of Treatment Not on file documented as of this encounter Visit Diagnoses Not on filedocumented in this encounter Care Teams Ring Attacher Relationship Specialty Start Date End Date Diana Garcias MD [address] [place] [address] PCP - General 09/11/16 documented as of this encounter
--- OUTSIDE RECORDS SUMMARY | 2024-09-25 02:41 | XMS_ITS | Clinical Summary ---
Author Organization [facility] Address [address] [place] [address] Care Team Providers Care Beef Farmer Name Role Phone Diana Garcias MD Primary Care Provider [phone] Allergies No known active allergies Medications tamsulosin [...] on file Legal Sex Male 11:22 AM SUSTAINABILITY PROJECT COORDINATOR Gender Identity Male 02/20/2021 10:08 AM CDT Sexual Orientation Straight 02/20/2021 10 :08 AM CDT Obstetrics History Last Filed Vital Signs Vital Sign Reading Time Taken Comments Blood Pressure - - Pulse - - Temperature 36.7 C (98 F) 07/06/2022 1:30 PM SUSTAINABILITY PROJECT COORDINATOR Respiratory Rate - - Oxygen Saturation - [...] LAB BLOOD ORDERABLES Final Re sult [facility] One [facility] [place] [address] from Last 3 Months or Most Recently Relevant to Health Maintenance Insurance [place] [address] [facility] Care Teams Beef Farmer Relationship Specialty Start Date End Date Diana Garcias MD [address] [place] [address] PCP - General 09/11/16
--- OUTSIDE RECORDS SUMMARY | 2024-09-25 02:41 | XMS_ITS | Referral Summary ---
Author Organization [facility] al Address [address] [place] [address] Care Team Providers Care Seasonal Delivery Driver Name Role Phone Diana Garcias MD Primary Care Provider [phone] Allergies No known active allergies Medications tamsulosin [...] on file Legal Sex Male 11:22 AM DIRECTOR OF SALES SUPPORT Gender Identity Male 02/20/2021 10:08 AM CDT Sexual Orientation Straight 02/20/2021 10 :08 AM CDT Last Filed Vital Signs Vital Sign Reading Time Taken Comments Blood Pressure - - Pulse - - Temperature 36.7 C (98 F) 07/06/2022 1:30 PM DIRECTOR OF SALES SUPPORT Respiratory Rate - - Oxygen Saturation - [...] AM CDT) PSA-Total 5.39 <=5.40 ng/mL [facility] Comment: Interpretive Data AGE SEX REFERENCE INTERVAL 0 minutes-150 years Female None 0 minutes-49 years Male None 50-59 years Male 0-3.90 60-69 years Male 0-5.40 70-79 years Male 0-6.20 80-150 years Male 0-6.20 Current interpretive data last revised 2017. Blood 01/28/2021 9:10 AM CDT 01/28/2021 9:24 AM CDT us Deon Mead MD LAB BLOOD ORDERABLES Final Re sult [facility] One [facility] Department [place] [address] from Last 3 Months or Most Recently Relevant to Health Maintenance Insurance [facility] MEDICARE ADVANTAGE [facility] MEDICARE Address: [address] [address] [place] [address] [place] Care Teams Seasonal Delivery Driver Relationship Specialty Start Date End Date Diana Garcias MD [address] [place] [address] PCP - General 09/11/16
--- NOTE | 2024-09-25 06:43 | P.PNAN_ITS ---
Anes - Initial Pre Proc Eval Procedure: Operation Date: 09/25/24 07:30 Proposed Procedures p Right Total Knee Arthroplasty - Serge Ashraf MD Date/Time: 09/25/24 06:43 Surgeon: Serge Ashraf MD Pre Op Diagnosis: OA right knee Patient Data Age: 69 Gender: M Height: 1.73 m Weight: 90 kg Allergies Allergy/AdvReac Type Severity Reaction Status Date / Time pollen extracts Allergy Intermediate Congested Verified 09/10/24 12:59 walnut Allergy Unknown Verified 09/10/24 12:59 Home Medications ?Medication ?Instructions ?Recorded ?Confirmed ?Type lovastatin 20 mg tablet 20 mg PO DAILY 07/11/21 09/10/24 History multivitamin with minerals-folic 1 tablet PO DAILY 07/11/21 09/10/24 History acid 0.4 mg tablet tamsulosin 0.4 mg capsule 0.4 mg PO DAILY 07/11/21 09/10/24 History calcium 600 mg (as 1 tablet PO DAILY 02/15/24 09/10/24 History carbonate)-vitamin D3 20 mcg (800 unit) tablet vitamin B complex 1 cap PO DAILY 02/15/24 09/10/24 History acetaminophen 500 mg tablet 1,000 mg (2 x 500 mg) PO Q6H #100 05/13/24 09/10/24 Rx tabs peg [id number] 1 1 drp EACH EYE Q2H PRN Dry Eye(S) 05/13/24 09/10/24 Rx %-0.2 %-0.2 % eye drops #30 mL (Artificial Tears ([id number])) celecoxib 200 mg capsule (Celebrex) 200 mg PO DAILY #30 caps 07/21/24 09/10/24 Rx cephalexin 500 mg capsule 500 mg PO ONCE #4 caps 07/23/24 09/10/24 Rx Patient hx anesthesia problems: none Family hx anesthesia problems: none Results Review: All pre-operative results and documents have been reviewed as part of the pre- operative evaluation. [facility] Past Medical History Medical History (Updated 09/25/24 @ 06:43 by William Lopes DO) Dyslipidemia Enlarged prostate Colon cancer screening Surgical History Surgical History (Updated 09/25/24 @ 06:55 by William Lopes DO) History of left knee replacement History of hernia repair History of heart surgery VSD closure Family History Family History (Reviewed 07/21/24 @ 11:10 by Twila Whitt [facility]) Sibling Family history of thyroid disease Family history of arthritis Father Hypertension Cerebrovascular accident Mother Family history of arthritis Acute myocardial infarction Social History Social History (Updated 07/21/24 @ 14:43 by Mariluz Cortes [facility]) Smoking status: Never smoker Additional smoking assessment comments: denies any nicotine Alcohol intake: current Drinks per week: 2 Substance use: never Substance use type: does not use Do You Feel Safe in your Home?: Yes Lack of Transportation: No Lack of Food: Never True Current Housing: I Have Housing Concerned About Future Housing: No Difficulty Paying Gas/Electric Bills: No Difficulty Paying for Meds: No Currently Unemployed: No Education: Associate Degree Difficulty w/ Childcare or Family Care: No Living arrangements: alone Additional living arrangements comments: Spiritual care concerns: No Anes - Eval Final PreProcedure Day of Procedure 09/25/24 06:43 Patient weight: obese Heart: regular rate and rhythm Lungs: clear to auscultation Airway: Mallampati scale class II Neurological: alert and oriented Last oral intake: >/= 8 hours ASA classification: II Emergent: no Anesthetic plan: proceed Anesthesia type and monitoring: general ETT and standard monitoring Results Review: All pre-operative results and documents have been reviewed as part of the pre- operative evaluation. Informed Consent: The patient's anesthetic plan and its attendant risks and benefits were discussed with the patient/family/POA. Questions were solicited and answers provided to the satisfaction of the patient/family/POA.
[2024-09-25] MEDS: LACTATED RINGERS 1,000 ML 30 ML IV CONT ×2 (07:00→11:23)
[2024-09-25] MEDS: VANCOMYCIN 1,250 MG/NS 250 ML 1,250 MG/250 ML BAG 166.67 MG IVPB (07:00)
[2024-09-25] MEDS: TRANEXAMIC ACID 1,000MG/ISO100 1,000 MG/100 ML BAG 200 MG IVPB (07:00)
[2024-09-25] MEDS: ACETAMINOPHEN 500 MG TABLET 1000 MG PO (07:00)
--- NOTE | 2024-09-25 07:13 | WPDHPUPDATE1 ---
History and Physical Update Update Date/Time: 09/25/24 07:13 History and Physical has been reviewed, including an updated exam of the patient. There are NO changes in the patient's condition. Risks, benefits, and alternatives have been discussed and questions answered. Patient agrees to proceed with procedure.
[2024-09-25] MEDS: SODIUM CHLORIDE 0.9% IV 37.7 ML, MORPHINE SULFATE INJ (*CRX) 2 MG, ROPivacaine HCL 1% 2... INFILTRATE (07:29)
[2024-09-25] MEDS: ceFAZolin SODIUM 1 GM VIAL 3 GM (07:29)
[2024-09-25] MEDS: ceFAZolin 2 GM/D5W 50 ML 2 GM/50 ML BAG IVPB ×3 (07:45→23:56)
[2024-09-25] MEDS: GENTAMICIN BONE CEMENT REFOBACIN 1 EACH TOPICAL (10:00)
[2024-09-25] MEDS: ceFAZolin SODIUM 1 GM VIAL 2 GM IV PUSH (10:15)
[2024-09-25] MEDS: TRANEXAMIC ACID 1,000 MG/10 ML AMPUL 1000 MG IV PUSH (10:20)
[2024-09-25] MEDS: KETOROLAC 15 MG/ML VIAL (*BKC) IV PUSH ×3 (10:40→23:54)
--- NOTE | 2024-09-25 11:20 | P.OP_ITS ---
Procedure Note - Detailed Date of Procedure 09/25/24 Pre-op Diagnosis OA right knee Post-op Diagnosis Same Procedure Performed Right total knee arthroplasty Surgeon Serge Ashraf MD [employer] [facility] Anesthesia General Description of Procedure Patient was brought to the operating room and general anesthesia was administered. The right knee was prepped and draped in the usual fashion. He received 2 g of Ancef weight based vancomycin and 1 g of TXA preoperatively. Limb was exsanguinated tourniquet elevated to 300 mmHg. A 7 in longitudinal midline incision was used made and a standard parapatellar arthrotomy utilized. Partial excision of infrapatellar fat pad was performed. Quadriceps synovectomy carried out. Suprapatellar fat pad excised. The patella showed some minimal osteophytes inferiorly which were debrided and otherwise I felt the patella was in excellent condition and most suitable for non resurfacing. A conservative lateral facetectomy was performed. A guide diane was inserted on femoral canal after aspiration of canal contents using the 5 degree valgus cutting bushing, we could see that the guide would take a mm more off the lateral femoral condyle than the medial side due to wear. Therefore we started with an 8 mm cut. Next the tibial plateau was cut at 1-2 degrees of varus in the coronal plane perpendicular to the sagittal plane. He had a unusually pronounced varus deformity of his proximal femur and this is the reason we elected to cut at 1? of varus. The cut was made such that it would give us a skim cut the low point of medial tibial plateau. This removed about 11.5 mm laterally. Pain quality was excellent. Meniscal remnants were excised and the PCL was recessed. Conservative removal of medial tibial osteophytes and osteophyte from the medial femoral condyle was carried out. The flexion gap at 90? measured 8 mm medially and 14 mm laterally. We applied the distal femoral sizing guide at 5? of external rotation which was external to Whitesides line and posterior referencing pinholes were placed. Due to the uncertainty of the final optimal rotational position due to the marked asymmetry in the flexion gap, we cut for the 72.5 vanguard femur. I felt that the size 70 would be the optimal size for a flush cut to the anterior cortex. As expected with the 10 mm CR trial, the medial side was very tight and lateral side he was. This was present in both flexion and extension. The tibial alignment was confirmed and we sized the tibia to a 79 which fit line to posterolateral to anteromedial and this was punched have proper rotation and we then exposed the posteromedial tibial osteophyte which was carefully removed. We trialed with the 10 insert and it was still a tight medially and the lateral side opened up to varus stress about 3 mm at 90?. Having thoroughly removed tibial osteophyte I felt that the best recourse would be to externally rotate the femur an additional degree to allow use of 11 insert to have better mediolateral balance at 90?. We applied the size 70 cutting block with the medial fixation pin removed and externally rotated 1? it would take another mm of bone off the posterior aspect of medial femoral condyle and this was pinned in place with the threaded pins and recut. With this performed on re trialing the 11 insert had 1 mm medial opening at 90? and 2 mm lateral opening. We lacked extension with no play medially. An additional 2 mm of bone removed the distal femur. This allowed 1 mm medial opening in full extension and 3 mm of lateral opening with negative bounce. With the arthrotomy approximated with towel clips there was still a negative bounce but no medial opening to valgus stress. AP stability had a few mm of anterior posterior drawer at 90?. We did trial the 10 insert which had a positive bounce lacking a degree or 2 of extension and was too tight to allow any anterior-posterior translation at 90?. Lug holes were drilled for the femoral component and posterior femoral osteophytes residuals were removed. We did not have to perform a posterior capsule release other than the resection of the PCL performed earlier. At this point the limb was re-exsanguinated and tourniquet elevated to 300 mmHg. We had put it down earlier at 88 minutes. The bony surfaces were thoroughly prepped with the step drill as particularly in the medial tibial plateau the bone was quite sclerotic. Distal femoral bone also was excellent. The bony surfaces were thoroughly irrigated and dried. Using 2 batches of methylmethacrylate, 1 with gentamicin powder, the cement was mixed immediately applied the 79 vanguard tibial tray and then the size 70 CR right femoral component. Cement was applied the tibial plateau pressurized tibial component fully seated cement by the femur the femoral component fully seated the knee brought into extension with a 12 mm 5 and 1 insert. Tourniquet was released total tourniquet time 110 minutes. After cement hardening excess cement was sought for and removed and hemostasis was achieved. We trialed with the 11 which had the same range of motion and stability findings as above. Again the size 12 had positive bounce and no play with anterior posterior drawer at 90? indicating it was excessively tight. The 11 was placed without difficulty locked the locking pin. Range of motion stability and patellar tracking reconfirmed. Local anesthetic cocktail was injected in the periarticular soft tissues. Arthrotomy was closed with 2. Vicryl and 1. Unidirectional barbed Stratafix suture. Skin closed with 2 subcutaneous Vicryl 3-0 subcuticular Monocryl and glue. EBL was 250 cc. Two additional g of Ancef and 1 g of TXA given time wound closure. No known complications. [facility]ENDON Billing Surgery - Charge Forward: Surgery Billing (Right total knee arthroplasty)
--- NOTE | 2024-09-25 11:33 | PM.OP ---
Procedure Note - Brief Procedure Note - Brief Date of procedure: 09/25/24 OA right knee Procedure performed: Right total knee arthroplasty Surgeon: MARIA DEL CARMEN Pinedo Findings: 69-year-old male known right total knee arthroplasty on 09/25. I was involved in the procedure including positioning the patient on the OR table in 1st assisting through the time surgery. Total time spent was 3-1/2 hours
[2024-09-25] MEDS: fentaNYL CITRATE INJ (*CRX) 100 MCG/2 ML VIAL 25 MCG IV PUSH ×4 (11:34→11:40)
[2024-09-25] MEDS: HYDROmorphone HCL INJ (*CRX) 2 MG/ML VIAL 0.5 MG IV PUSH ×3 (11:44→11:58)
--- NOTE | 2024-09-25 13:35 | ADMGEN ---
This patient, Velasquez Murphy, was admitted to 3 [facility] Surg Room 321-01 at 1310. Patient/family oriented to hospital policies and general routines including ID bracelet, bed and alarms, visiting hours, pain management, procedures, bathroom and other care routines, personal items, smoking policy, room service/diet, and visiting hours. Information on how to activate the Rapid Response Team has been discussed. Patient/Family are encouraged to report perceived risks to care and to ask questions if they do not understand what they are told or what they should do.
[2024-09-25] MEDS: ACETAMINOPHEN 325 MG TABLET 650 MG PO ×3 (14:38→22:01)
[2024-09-25] MEDS: oxyCODONE HCL (*CRX) 5 MG TAB IR PO ×3 (15:42→23:51)
[2024-09-25] MEDS: SENNA/DOCUSATE SODIUM TABLET 2 TAB PO (17:58)
[2024-09-25] MEDS: FAMOTIDINE 20 MG TABLET PO (20:47)
[2024-09-25] MEDS: VANCOMYCIN 1,000 MG/NS 250 ML 1,000 MG/250 ML BAG 250 MG IVPB (20:48)
[2024-09-26 01:13] VITALS: BP 99/49; PULSE 64; RESP 18; TEMP 36.3; O2SAT 97
[2024-09-26] MEDS: oxyCODONE HCL (*CRX) 5 MG TAB IR PO ×3 (02:41→11:03)
[2024-09-26] MEDS: ACETAMINOPHEN 325 MG TABLET 650 MG PO ×3 (02:42→08:46)
[2024-09-26 04:30] VITALS: BP 106/55; PULSE 64; RESP 20; TEMP 36.6; O2SAT 99
[2024-09-26 06:23] LABS: Basophils Percent Auto 0.2 % (0.2-1.2); Eosinophils Percent Auto 0.1 % (0-4.4); Hematocrit 35.3 % (42.0-52.0); Hemoglobin 11.4 g/dL (14.0-18.0); Immature Granulocyte Absolute 0.04 K/mm3 (0.00-0.031); Immature Granulocyte Percent A 0.4 % (0-0.5); Lymphocytes Absolute Auto 1.29 K/mm3 (0.9-3.2); Lymphocytes Percent Auto 14.3 % (18.3-44.2); Mean Corpuscular HGB Conc 32.3 g/dl (32-36); Mean Corpuscular Hemoglobin 31.6 pg (26-34); Mean Corpuscular Volume 97.8 fl (80-100); Mean Platelet Volume 9.6 fl (7.4-10.4); Monocytes Absolute Auto 1.2 K/mm3 (0.1-0.6); Monocytes Percent Auto 12.8 % (2.6-8.5); Neutrophils Absolute Auto 6.5 K/mm3 (1.3-6.7); Neutrophils Percent Auto 72.2 % (45.5-73.1); Platelet Count Result 181 k/mm3 (150-375); Red Blood Count 3.61 M/mm3 (4.6-6.20); Red Cell Distribution Width 13.2 % (11.5-14.5)
[2024-09-26] MEDS: VANCOMYCIN 1,000 MG/NS 250 ML 1,000 MG/250 ML BAG 250 MG IVPB (06:38)
[2024-09-26 06:44] LABS: Anion Gap 8 mmol/L (4-12); Blood Urea Nitrogen 19 mg/dL (9-20); Calcium 8.1 mg/dL (8.4-10.2); Carbon Dioxide 24 mmol/L (22-30); Chloride 107 mmol/L (98-107); Estimated CRCL calculation 55 ml/min; Estimated Glomerular Filt Rate > 60; Glucose 105 mg/dL (65-110); Potassium 4.4 mmol/L (3.4-5.0); Sodium 139 mmol/L (137-145)
--- NOTE | 2024-09-26 07:23 | P.PNOP_ITS ---
Subjective Subjective Date/Time Seen: 09/26/24 07:23 Interval history: Postop day 1 patient is alert. He is afebrile vital signs are stable. Morning labs are noted. Dressing is dry and intact. Patient was up yesterday walking and doing exercises with therapy. Pain is very well controlled. Overall patient is very comfortable and doing well. He is eager to go home. Will plan have the patient work with therapy this morning and once IV antibiotics been c ompleted he will be discharged home late this morning. Objective Data Vital Signs Vital Signs: Vital Signs - 24 hr 09/25/24 11:23 09/25/24 11:38 09/25/24 11:45 Temperature 98.1 F Pulse Rate 74 68 66 Respiratory Rate 18 18 18 Blood Pressure 129/64 133/60 124/81 Pulse Oximetry 99 100 99 Oxygen Delivery Simple Face Mask Simple Face Mask Simple Face Mask Oxygen Flow Rate 8 8 8 09/25/24 12:00 09/25/24 12:15 09/25/24 12:30 Temperature Pulse Rate 65 66 64 Respiratory Rate 12 20 20 Blood Pressure 142/81 H 124/72 132/73 Pulse Oximetry 99 100 100 Oxygen Delivery Room Air Nasal Cannula Nasal Cannula Oxygen Flow Rate 2 2 09/25/24 12:40 09/25/24 13:13 09/25/24 13:21 Temperature 97 F L Pulse Rate 62 62 65 Respiratory Rate 18 18 18 Blood Pressure 126/73 132/55 L Pulse Oximetry 100 100 98 Oxygen Delivery Nasal Cannula Room Air Oxygen Flow Rate 2 09/25/24 13:54 09/25/24 14:08 09/25/24 15:12 Temperature 96.6 F L Pulse Rate 66 Respiratory Rate 17 Blood Pressure 144/41 H Pulse Oximetry 99 97 Oxygen Delivery Room Air Room Air Oxygen Flow Rate 09/25/24 15:35 09/25/24 17:13 09/25/24 20:00 Temperature 96.8 F L Pulse Rate 66 Respiratory Rate 17 Blood Pressure 126/58 L Pulse Oximetry 100 Oxygen Delivery Room Air Room Air Oxygen Flow Rate 09/25/24 21:15 09/26/24 01:13 09/26/24 04:30 Temperature 97.4 F L 97.4 F L 98 F Pulse Rate 69 64 64 Respiratory Rate 20 18 20 Blood Pressure 97/49 L 99/49 L 106/55 L Pulse Oximetry 98 97 99 Oxygen Delivery Oxygen Flow Rate Intake/Output Intake/Output: Intake & Output 09/23/24 09/24/24 09/25/24 09/26/24 23:59 23:59 23:59 23:59 Intake Total 2380 600 Output Total 300 800 Balance 2080 -200 Meds/Results Medications: Active Medications Generic Name Dose Route Start Last Admin Trade Name Freq PRN Reason Stop Dose Admin Acetaminophen 650 mg 09/25/24 14:00 09/26/24 06:34 Acetaminophen 325 Mg Tablet PO 650 mg Q4H EZEQUIEL Administration Apixaban 2.5 mg 09/26/24 09:00 Apixaban 2.5 Mg Tablet PO 10/07/24 21:01 Q12HR EZEQUIEL Artificial Tears 1 drop 09/25/24 11:29 Artificial Tears Ophth Soln 15 Ml Bottle EACH EYE Q2H PRN Dry Eye(S) Celecoxib 200 mg 09/26/24 08:00 Celecoxib 200 Mg Capsule PO DAILY@0800 EZEQUIEL Diphenhydramine HCl 25 mg 09/25/24 11:28 Diphenhydramine Hcl Inj 50 Mg/Ml Vial IV PUSH Q6H PRN Itching Doxycycline Hyclate 100 mg 09/26/24 09:00 Doxycycline Hyclate 100 Mg Tablet PO Q12HR EZEQUIEL Famotidine 20 mg 09/25/24 21:00 09/25/24 20:47 Famotidine 20 Mg Tablet PO 20 mg Q12HR EZEQUIEL Administration Cefazolin Sodium 2 gm in 50 mls @ 100 mls/hr 09/25/24 16:00 09/26/24 00:26 Ancef 2 Gm/D5w 50 Ml IVPB 09/26/24 08:29 Infused Q8H [facility] Infusion Vancomycin HCl 1,000 mg in 250 mls @ 250 mls/hr 09/25/24 19:00 09/26/24 06:38 Vancomycin 1,000 Mg/Ns 250 Ml IVPB 09/26/24 07:59 250 mls/hr Q12H EZEQUIEL Administration Lovastatin 20 mg 09/26/24 09:00 Lovastatin 20 Mg Tablet PO DAILY EZEQUIEL Morphine Sulfate 2 mg 09/25/24 11:30 Morphine Sulfate (*Crx) 2 Mg/Ml Inj IV PUSH Q2H PRN Breakthrough Pain Rated 4-6 or NPO Naloxone HCl 0.1 mg 09/25/24 11:28 Naloxone Hcl 0.4 Mg/Ml Vial IV PUSH Q2M PRN Opiate Reversal Ondansetron HCl 4 mg 09/25/24 11:28 Ondansetron Inj 4 Mg/2 Ml Vial IV PUSH Q4H PRN Nausea And Vomiting Oxycodone HCl 5 mg 09/25/24 11:30 09/26/24 02:41 Oxycodone Hcl (*Crx) 5 Mg Tab Ir PO 5 mg Q4H EZEQUIEL Administration Oxycodone HCl 5 mg 09/25/24 11:30 Oxycodone Hcl (*Crx) 5 Mg Tab Ir PO Q4H PRN Pain Rated 7-10 Polyethylene Glycol 17 gm 09/26/24 09:00 Polyethylene Glycol 3350 17 Gm Powd.Pack PO QAM EZEQUIEL Senna/Docusate Sodium 2 tab 09/25/24 17:00 09/25/24 17:58 Senna/Docusate Sodium Tablet PO 2 tab BID EZEQUIEL Administration Tamsulosin HCl 0.4 mg 09/26/24 09:00 Tamsulosin Hcl 0.4 Mg Capsule PO DAILY [facility] Radiology Results: ITS Impressions Knee X-Ray 09/25/24 11:26 IMPRESSION: 1. Right total knee arthroplasty, negative for postoperative purposes. Labs Labs: Laboratory Results - last 24 hr 09/26/24 06:02 WBC 9.0 RBC 3.61 L Hgb 11.4 L D Hct 35.3 L MCV 97.8 MCH 31.6 MCHC 32.3 RDW 13.2 Plt Count 181 MPV 9.6 Immature Gran % (Auto) 0.4 Neut % (Auto) 72.2 Lymph % (Auto) 14.3 L Hyde % (Auto) 12.8 H Eos % (Auto) 0.1 Baso % (Auto) 0.2 Lymph # (Auto) 1.29 Hyde # (Auto) 1.2 H Eos # (Auto) 0.0 Baso # (Auto) 0.0 Abs Immat Gran (auto) 0.04 H Absolute Neuts (auto) 6.5 Absolute Nucleated RBC 0.000 Nucleated RBC % 0.0 Sodium 139 Potassium 4.4 Chloride 107 Carbon Dioxide 24 Anion Gap 8 BUN 19 Creatinine 1.12 Estim Creat Clear Calc 55 Estimated GFR > 60 Glucose 105 Calcium 8.1 L
[2024-09-26] MEDS: APIXABAN 2.5 MG TABLET PO (08:44)
[2024-09-26] MEDS: TAMSULOSIN HCL 0.4 MG CAPSULE PO (08:45)
[2024-09-26] MEDS: LOVASTATIN 20 MG TABLET PO (08:45)
[2024-09-26] MEDS: FAMOTIDINE 20 MG TABLET PO (08:45)
[2024-09-26] MEDS: DOXYCYCLINE HYCLATE 100 MG TABLET PO (08:46)
[2024-09-26] MEDS: CELECOXIB 200 MG CAPSULE PO (08:46)
[2024-09-26] MEDS: SENNA/DOCUSATE SODIUM TABLET 2 TAB PO (08:46)
[2024-09-26] MEDS: ceFAZolin 2 GM/D5W 50 ML 2 GM/50 ML BAG IVPB (08:47)
[2024-09-26 09:13] VITALS: BP 102/56; PULSE 61; RESP 18; TEMP 36.1; O2SAT 97
== END 2024-09-26 11:25 | disposition home or self-care (01) ==
LOC: ANHSURGERY 06:00 → ANH3MEDSUR 12:53
PROVIDERS: Physician Assistant Surgical; PCP Internal Medicine; Visit Provider Orthopaedic Surgery
PROC: (CPT 27447; principal; 2024-09-25 07:30)
DX: M17.11 Unilateral primary osteoarthritis, right knee (principal); E66.9 Obesity, unspecified; Z68.29 Body mass index [BMI] 29.0-29.9, adult
CPT/HCPCS: 27447; 36415; 73560; 80048; 85025; 97110; 97116; 97161; 97165; 97530; 97535; A9270; C1713; C1776; J0171; J0690; J1100; J1171; J1885; J2003; J2250; J2270; J2405; J2704; J2795; J3010; J3370; J7120

== ENCOUNTER 2024-11-13 08:00 | Outpatient (RCR) | payer MEDICARE, SELFPAY ==
--- NOTE | 2024-09-30 09:06 | PTOPEVAL1 ---
Assessment and note entered by Janet Vanegas DPT Evaluation Information Assessment Status Evaluation Diagnosis R knee pain ICD-10 Condition Codes (PT) Pain in right knee M25.561,Aftercare following joint replacement surgery Z47.1 Onset 09/25/24 Subjective Information Patient reports he underwent R TKA on 09/25/24. He also underwent L TKA on 05/12/24. He reports he has been doing a few exercises at home. He reports he has been able to sleep in bed. He reports he is using a FWW now but did not use an AD prior. He reports 6 steps to get into the house and he is using his walker. He reports difficulty getting his leg into bed, walking, and navigating stairs. He reports her returns to [place] next week. Reported Pain Level Pain Score 4: Self Report Assessment PT Clinical Summary Mr. Murphy is a 69 year old male who presents to PT with R knee pain s/p R TKA. He demonstrate decreased R knee ROM, decreased R LE strength and impaired gait limiting his ability to navigate steps, get up out of a chair, get into and out of bed and complete house hold tasks. He would benefit from skilled PT to address impairments and return to PLOF. Plan of Care Interventions Electrical Stimulation,Gait Training,Hot Pack/Cold Pack,Intermittent Compression Pump,Manual Therapy ,Neuro Re-education,Patient/Caregiver Education, Therapeutic Activities,Therapeutic Exercise PT Services Indicated Yes Treatment Frequency and 2x weekly for 12 visits Duration These treatments will address the objective and functional deficits as defined above. The patient will be advanced safely and appropriately in order for the patient to progress towards his/her prior level of function. Additional exercises will be introduced and as well as a comprehensive home exercise program upon discharge, if needed, ?to ensure carryover of functional gains achieved in the clinic. This treatment plan has been reviewed and agreement upon by the patient.
--- NOTE | 2024-11-06 08:57 | OPREHPOC ---
Outpatient Therapy Plan of Care This is a Multidisciplinary Plan of Care that may contain components documented by all disciplines (PT, OT, and ST.) PT Problem 1 PT Problem #1 Knowledge Deficit PT Goal 1 Goal / Goal Update Patient to demonstrate independence with HEP Target Visit 6 Progress Met PT Problem 2 PT Problem #2 Pain PT Goal 1 Goal / Goal Update patient to report highest pain at 2/10 Target Visit 12 Progress Not Met PT Problem 3 PT Problem #3 Impaired Range of Motion PT Goal 1 Goal / Goal Update Patient to demonstrate 0-120 deg of R knee active ROM to return to stair navigation at PLOF Target Visit 12 Progress Not Met PT Problem 4 PT Problem #4 Impaired Strength PT Goal 1 Goal / Goal Update Patient to demonstrate 4+/5 B LE strength to return to getting up out of a chair and completing house hold tasks Target Visit 12 PT Problem 5 PT Problem #5 Impaired Functional Mobility PT Goal 1 Goal / Goal Update 1. Patient to improve LEFS by 20% 2. Patient to ambulate with heel strike at R IC and no use of AD. partailly met 3. Patient to ambulate 6 steps with no use of hand rail to return to entering his home at PLOF. partially met Target Visit 12 Progress Not Met
--- NOTE | 2024-11-06 08:57 | PTOPPROGNS ---
Assessment and note entered by JT File, PT Evaluation Information Assessment Status Progress Diagnosis R knee pain ICD-10 Condition Codes (PT) Pain in right knee M25.561,Aftercare following joint replacement surgery Z47.1 Onset 09/25/24 Subjective Information patient arrives to skilled PT for his 10th skilled therapy visit s/p R TKA. he reports he has been active with his exercises at home already this morning and is sore from them. Assessment PT Clinical Summary mmr. morel presents to skilled PT for his 10th skilled therapy today. he displays improved R knee active and passive rom today achieveing 120 degrees passive flexion. he is ambulating without an AD, and reciprocally up and down steps but with slight deficits in mechanics of the R LE compared to the L. he displays progress towards all goals, and will continue with skilled PT per his initial POC. Plan of Care Interventions Electrical Stimulation,Gait Training,Hot Pack/Cold Pack,Intermittent Compression Pump,Manual Therapy ,Neuro Re-education,Patient/Caregiver Education, Therapeutic Activities,Therapeutic Exercise PT Services Indicated Yes Treatment Frequency and continue per initial POC Duration These treatments will address the objective and functional deficits as defined above. The patient will be advanced safely and appropriately in order for the patient to progress towards his/her prior level of function. Additional exercises will be introduced and as well as a comprehensive home exercise program upon discharge, if needed, ?to ensure carryover of functional gains achieved in the clinic. This treatment plan has been reviewed and agreement upon by the patient.
--- NOTE | 2024-11-13 08:55 | OPREHPOC ---
Outpatient Therapy Plan of Care This is a Multidisciplinary Plan of Care that may contain components documented by all disciplines (PT, OT, and ST.) PT Problem 1 PT Problem #1 Knowledge Deficit PT Goal 1 Goal / Goal Update Patient to demonstrate independence with HEP Target Visit 6 Progress Met PT Problem 2 PT Problem #2 Pain PT Goal 1 Goal / Goal Update patient to report highest pain at 2/10 Target Visit 18 Progress Not Met PT Problem 3 PT Problem #3 Impaired Range of Motion PT Goal 1 Goal / Goal Update Patient to demonstrate 0-120 deg of R knee active ROM to return to stair navigation at [facility]. met flexion goal Target Visit 18 Progress Partially Met PT Problem 4 PT Problem #4 Impaired Strength PT Goal 1 Goal / Goal Update Patient to demonstrate 4+/5 B LE strength to return to getting up out of a chair and completing house hold tasks Target Visit 12 Progress Met PT Problem 5 PT Problem #5 Impaired Functional Mobility PT Goal 1 Goal / Goal Update 1. Patient to improve LEFS by 20% 2. Patient to ambulate with heel strike at R IC and no use of AD. partailly met 3. Patient to ambulate 6 steps with no use of hand rail to return to entering his home at PLOF. partially met Target Visit 12 Progress Partially Met PT Goal 2 Goal / Goal Update patient to complete 6 minute walk test for a distance of 1600ft patient to ambulate up and down steps with reciprocal mechanics and 1 hand rail hold or less with equal push off up and no compensation down. Target Visit 18
--- NOTE | 2024-11-13 08:55 | PTOPREEVAL ---
Assessment and note entered by JT File, PT Evaluation Information Assessment Status Re-evaluation Diagnosis R knee pain ICD-10 Condition Codes (PT) Pain in right knee M25.561,Aftercare following joint replacement surgery Z47.1 Onset 09/25/24 Subjective Information patient presents to skilled PT for his 12th skilled PT visit. he reports in general the inside of the R knee is a little sore today. he reports he returns to the surgeon on 12/03/24. 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 he reports he still has difficulty with going down steps. Reported Pain Level Pain Score 3: Self Report Assessment PT Clinical Summary mr. morel presents to skilled PT for his 12th skilled PT visit. he displays improvements towards rom goal, but is still lacking the necessary knee extension arom to achieve it. he presents with progress in ambulation mechanics, but still lacks TKE and equal heel contact on the R LE. patient would benefit from continued skilled PT to focus on these and his other remaining objective/ functional deficits to achieve all goals and return to full PLOF performance. Plan of Care Interventions Electrical Stimulation,Gait Training,Hot Pack/Cold Pack,Intermittent Compression Pump,Manual Therapy ,Neuro Re-education,Patient/Caregiver Education, Therapeutic Activities,Therapeutic Exercise PT Services Indicated Yes Treatment Frequency and continue skilled PT 2x weekly for 6 more visits Duration These treatments will address the objective and functional deficits as defined above. The patient will be advanced safely and appropriately in order for the patient to progress towards his/her prior level of function. Additional exercises will be introduced and as well as a comprehensive home exercise program upon discharge, if needed, ?to ensure carryover of functional gains achieved in the clinic. This treatment plan has been reviewed and agreement upon by the patient.
--- NOTE | 2024-12-04 09:09 | OPREHPOC ---
Outpatient Therapy Plan of Care This is a Multidisciplinary Plan of Care that may contain components documented by all disciplines (PT, OT, and ST.) PT Problem 1 PT Problem #1 Knowledge Deficit PT Goal 1 Goal / Goal Update Patient to demonstrate independence with HEP Target Visit 6 Progress Met PT Problem 2 PT Problem #2 Pain PT Goal 1 Goal / Goal Update patient to report highest pain at 2/10 Target Visit 18 Progress Met PT Problem 3 PT Problem #3 Impaired Range of Motion PT Goal 1 Goal / Goal Update Patient to demonstrate 0-120 deg of R knee active ROM to return to stair navigation at [facility]. partially met Target Visit 18 Progress Partially Met PT Problem 4 PT Problem #4 Impaired Strength PT Goal 1 Goal / Goal Update Patient to demonstrate 4+/5 B LE strength to return to getting up out of a chair and completing house hold tasks Target Visit 12 Progress Met PT Problem 5 PT Problem #5 Impaired Functional Mobility PT Goal 1 Goal / Goal Update 1. Patient to improve LEFS by 20%. met 2. Patient to ambulate with heel strike at R IC and no use of AD. met 3. Patient to ambulate 6 steps with no use of hand rail to return to entering his home at [facility]. partially met Target Visit 12 Progress Partially Met PT Goal 2 Goal / Goal Update patient to complete 6 minute walk test for a distance of 1600ft. met patient to ambulate up and down steps with reciprocal mechanics and 1 hand rail hold or less with equal push off up and no compensation down. met Target Visit 18 Progress Met
--- NOTE | 2024-12-04 09:10 | PTOPDC ---
Assessment and note entered by JT File, PT Evaluation Information Assessment Status Discharge Diagnosis R knee pain ICD-10 Condition Codes (PT) Pain in right knee M25.561,Aftercare following joint replacement surgery Z47.1 Onset 09/25/24 Subjective Information patient reports the R knee feels Good today. he reports he recently saw the surgeon, and reports he does not have another follow up until 1 year post op. he reports he very low if any pain in the R knee. Reported Pain Level Pain Score 1: Self Report Assessment PT Clinical Summary mr. morel presents to skilled PT services for his 18th skilled PT visit for rehab following R TKA. he displays full strength of the R knee, reciprocal gait mechanics and stair ambulation, and achievement of 0-120 degrees active R knee mobility. he is ready to DC skilled PT today, and will continue with HEP independent at home. Plan of Care PT Services Indicated Yes
== END 2024-12-04 20:00 | disposition home or self-care (01) ==
LOC: CHSPT 08:00
PROVIDERS: Visit Provider Orthopaedic Surgery
DX: Z47.1 Aftercare following joint replacement surgery (principal); Z96.651 Presence of right artificial knee joint; M17.11 Unilateral primary osteoarthritis, right knee
CPT/HCPCS: 97110; 97112; 97116; 97150; 97161; 97530